=== PATIENT | male | born 1955 | race Caucasian/White ===

== ENCOUNTER 2016-10-22 07:31 | Outpatient (CLI) | payer BC | END 2016-10-22 07:32 | disposition home or self-care (01) | DX: E03.9 Hypothyroidism, unspecified (principal); D70.9 Neutropenia, unspecified; Z79.899 Other long term (current) drug therapy; Z12.5 Encounter for screening for malignant neoplasm of prostate ==

== ENCOUNTER 2017-01-15 07:34 | Outpatient (CLI) | payer BC | END 2017-01-15 07:35 | disposition critical access hospital (66) | LOC: EMS 07:34 | PROVIDERS: ATTEND Surgery | DX: R07.9 Chest pain, unspecified (principal) | CPT/HCPCS: A0425; A0427 ==

== ENCOUNTER 2017-01-15 08:18 | Emergency (ER) | payer BC ==
[2017-01-15] MEDS ORDERED: ACETAMINOPHEN 325 MG TABLET PO STA (08:22)
[2017-01-15] MEDS ORDERED: IBUPROFEN 400 MG TABLET PO STA (08:22)
--- NOTE | 2017-01-15 08:25 | ED Physician Documentation ---
History of Present Illness - Stated complaint Stated Complaint: CP - Additonal information Additional information: hx from pt 61 male to ER with chest pain since 330 AM did a heavy rowing work out yesterday and it hurts when he moves his shoulders, 4/10, pressure like no SOA diaphoresis NV leg swelling no HTN DM lipid or Fhx CAD at a young age no travel inpt hospitalization etc Review of Systems Constitutional: denies: Fever Cardiac: reports: Chest pain / pressure GI: denies: Abdominal Pain Endocrine: denies: Easy bruising / bleeding Immunocompromised: denies: Immunocompromised PD PAST MEDICAL HISTORY - Past Medical History Cardiovascular: None Respiratory: None Endocrine/Autoimmune: HyPOthyroidism GI: Other : None HEENT: None Psych: Anxiety, Claustrophobia Musculoskeletal: None Derm: None - Past Surgical History General: Colonoscopy, EGD, Other - Present Medications Home Medications: Ambulatory Orders Medication Instructions Recorded Confirmed Levothyroxine [Synthroid] 250 mcg PO DAILY 01/10/15 01/15/17 Metoclopramide [Reglan] 5 mg PO DAILY 01/10/15 01/15/17 - Allergies Allergies/Adverse Reactions: Allergies Allergy/AdvReac Type Severity Reaction Status Date / Time Penicillins Allergy Rash Verified 01/15/17 08:25 PD ED PE NORMAL - Vitals Vital signs reviewed: Yes - Cardiac Cardiac: RRR, Other (chest wall TTP) - Respiratory Respiratory: No respiratory distress, Clear bilaterally - Abdomen Abdomen: Soft, Non tender - Derm Derm: Normal color - Extremities Extremities: No edema, No calf tenderness / cord - Neuro Neuro: Alert and oriented X 3 Results - Vitals Vitals: Vital Signs - 24 hr 01/15/17 01/15/17 08:19 09:01 Temperature 37.2 C Heart Rate 63 60 Respiratory 16 16 Rate Blood Pressure 114/72 101/70 O2 Saturation 96 Oxygen O2 Source Room air - EKG (time done) 0827 Rate: Rate (enter#) (59) Rhythm: NSR [place]: Normal Intervals: Normal [place] Ischemia: Normal ST segments - Labs Labs: Laboratory Tests 01/15/17 08:50 Troponin I < 0.04 Departure - Departure Disposition: 01 Home, Self Care Clinical Impression: Chest wall pain Condition: Good Instructions: ED Strain Chest Wall Follow-Up: Mamadou Talbert MD [Primary Care Provider] - Comments: The EKG, xray and blood test for your heart were all fine. Since your chest hurts with moving after a heavy workout, I suspect the pain is from the muscles in your chest wall Recommend motrin and tylenol as needed for pain
[2017-01-15] MEDS ORDERED: ACETAMINOPHEN 325 MG TABLET PO ONE (08:29)
[2017-01-15] MEDS ORDERED: IBUPROFEN 400 MG TABLET PO ONE (08:29)
--- NOTE | 2017-01-15 08:46 | XRAY Preliminary Report ---
Exam: XR Chest 2 View PA/LAT IMPRESSION: Normal 2-view chest radiography. [facility] SITE ID: [id number]
--- NOTE | 2017-01-15 08:49 | XRAY Report ---
EXAM: CHEST RADIOGRAPHY EXAM DATE: 01/15/2017 08:28 AM. CLINICAL HISTORY: Chest pain this morning COMPARISON: 11/03/2011. TECHNIQUE: 2 views. FINDINGS: Lungs/Pleura: No focal opacities evident. No pleural effusion. No pneumothorax. Normal volumes. Mediastinum: Heart and mediastinal contours are unremarkable. Other: None. IMPRESSION: Normal 2-view chest radiography. [facility] Referring Provider Line: [phone] SITE ID: [id number]
[2017-01-15 09:36] VITALS: BP 106/65
== END 2017-01-15 09:43 | disposition home or self-care (01) ==
LOC: EDUNIT# → ED 08:18
DX: R07.89 Other chest pain (principal); E03.9 Hypothyroidism, unspecified
CPT/HCPCS: 36415; 71020; 84484; 93005; 93010; 99284; A9270

== ENCOUNTER 2017-11-25 08:00 | Outpatient (CLI) | payer BC, OTHER ==
[2017-11-25 14:02] LABS: BASOPHILS % (AUTO) 0.6 %; EOSINOPHILS # (AUTO) 0.1 10^3/uL (0.0-0.7); EOSINOPHILS % (AUTO) 1.3 %; HGB - HEMOGLOBIN 14.7 g/dL (14.0-18.0); LYMPHOCYTES # (AUTO) 1.3 10^3/uL (1.5-3.5); LYMPHOCYTES % (AUTO) 30.3 %; MEAN CORPUSCULAR HEMOGLOBIN 32.5 pg (27.0-31.0); MEAN CORPUSCULAR VOLUME 95.7 fL (80.0-94.0); MEAN PLATELET VOLUME 8.2 fL (7.4-11.4); MONOCYTES # (AUTO) 0.4 10^3/uL (0.0-1.0); MONOCYTES % (AUTO) 8.6 %; NEUTROPHILS # (AUTO) 2.6 10^3/uL (1.5-6.6); NEUTROPHILS % (AUTO) 59.2 %; PLT - PLATELET COUNT 189 10^3/uL (130-450); RED BLOOD COUNT 4.51 10^6/uL (4.70-6.10); RED CELL DISTRIBUTION WIDTH 13.2 % (12.0-15.0); WHITE BLOOD COUNT 4.4 x10^3/uL (4.8-10.8)
[2017-11-25 14:11] LABS: ALBUMIN 4.2 g/dL (3.2-5.5); ALBUMIN/GLOBULIN RATIO 1.8 (1.0-2.2); BILIRUBIN,TOTAL 0.4 mg/dL (0.2-1.0); CALCIUM 8.8 mg/dL (8.5-10.3); CREATININE 0.8 mg/dL (0.6-1.2); TOTAL PROTEIN 6.6 g/dL (6.7-8.2)
[2017-11-25 14:23] LABS: HEMOGLOBIN A1C 0.67 g/dL
[2017-11-26 13:36] LABS: HEPATITIS C ANTIBODY NON-REACTIVE (NON-REACTIVE)
== END 2017-11-25 08:01 ==
LOC: LAB.R 08:00
PROVIDERS: ATTEND Internal Medicine
DX: R73.9 Hyperglycemia, unspecified (principal); G62.9 Polyneuropathy, unspecified; E03.9 Hypothyroidism, unspecified
CPT/HCPCS: 80053; 83036; 84443; 85025; 86803

== ENCOUNTER 2018-11-02 04:48 | Outpatient (CLI) | payer OTHER | END 2018-11-02 04:49 | disposition EMS.NT | LOC: EMS 04:48 | PROVIDERS: ATTEND Surgery | DX: R07.89 Other chest pain (principal) ==

== ENCOUNTER 2018-12-08 07:19 | Outpatient (CLI) | payer OTHER ==
[2018-12-08 10:55] LABS: CALCIUM 8.9 mg/dL (8.5-10.3); CREATININE 0.9 mg/dL (0.6-1.2)
[2018-12-08 11:22] LABS: HGB - HEMOGLOBIN 14.4 g/dL (14.0-18.0); MEAN CORPUSCULAR HEMOGLOBIN 32.2 pg (27.0-31.0); MEAN CORPUSCULAR HGB CONC 33.8 g/dL (32.0-36.0); MEAN CORPUSCULAR VOLUME 95.3 fL (80.0-94.0); MEAN PLATELET VOLUME 8.6 fL (7.4-11.4); RED BLOOD COUNT 4.49 10^6/uL (4.70-6.10); RED CELL DISTRIBUTION WIDTH 13.1 % (12.0-15.0); WHITE BLOOD COUNT 4.2 x10^3/uL (4.8-10.8)
== END 2018-12-08 07:20 | disposition home or self-care (01) ==
LOC: LAB.F 07:19
PROVIDERS: ATTEND Internal Medicine
DX: E03.9 Hypothyroidism, unspecified (principal); Z12.5 Encounter for screening for malignant neoplasm of prostate
CPT/HCPCS: 36415; 80048; 84153; 84443; 85027

== ENCOUNTER 2019-11-25 06:04 | Outpatient (CLI) | payer SELFPAY | END 2019-11-25 06:05 | disposition EMS.NT | LOC: EMS 06:04 | PROVIDERS: ATTEND Surgery | DX: R06.02 Shortness of breath (principal); R07.89 Other chest pain; F41.9 Anxiety disorder, unspecified ==

== ENCOUNTER 2019-12-06 03:39 | Outpatient (CLI) | payer BC | END 2019-12-06 03:40 | disposition critical access hospital (66) | LOC: EMS 03:39 | PROVIDERS: ATTEND Surgery | DX: R07.89 Other chest pain (principal); R06.02 Shortness of breath; R11.0 Nausea | CPT/HCPCS: A0425; A0427 ==

== ENCOUNTER 2019-12-06 04:19 | Emergency (ER) | payer BC ==
[2019-12-06] MEDS ORDERED: LORazepam 2 MG/ML VIAL IVP STA (04:46)
--- NOTE | 2019-12-06 04:48 | ED Physician Documentation ---
PD HPI CHEST PAIN - Stated complaint Stated Complaint: CHEST PRESSURE - Chief complaint Chief Complaint: Cardiac - History obtained from History obtained from: Patient, EMS - History of Present Illness Timing - onset: How many hours ago (1-2) Timing - onset during: Sleep (He was awakened by a feeling of pressure in his chest radiating to the left shoulder. He had some shortness of breath with it. He took 2 aspirin and did not feel any improvement. He tried antacid as well. The symptoms continued and so he had his son called EMS. They did give some morphine and nitroglycerin en route and he was feeling improved though still feeling a little bit anxious.), Rest Timing - duration: Hours Timing - details: Abrupt onset, Still present (lessened enroute, but not resolved.) Quality: Pressure, Tightness. No: Sharp, Tearing Location: Left chest Radiation: Back, Left upper extremity Improved by: No: ASA, Antacids Worsened by: No: Inspiration, Movement Associated symptoms: Shortness of air, Nausea, General Weakness. No: Feeling faint / dizzy, Palpitations, Cough Similar symptoms before: No diagnosis (No history of heart disease. He states h e did have cardiac evaluation with stress test and echocardiogram but it was about 10 years ago. He has episodes of chest discomfort and shortness of breath which is attributed to anxiety. He has not had a prior episode lasting a couple of hours like this current one.) Recently seen: Not recently seen Review of Systems Constitutional: denies: Fever, Chills, Myalgias Nose: denies: Rhinorrhea / runny nose, Congestion Throat: denies: Sore throat Cardiac: reports: Chest pain / pressure. denies: Palpitations, Pedal edema, Calf pain Respiratory: denies: Cough GI: reports: Nausea. denies: Abdominal Pain, Vomiting Skin: denies: Rash, Lesions Musculoskeletal: denies: Neck pain, Back pain Neurologic: reports: Generalized weakness. denies: Focal weakness, Numbness, Near syncope, Seizure Psychiatric: reports: Anxiety. denies: Depressed Endocrine: denies: Weight loss Immunocompromised: denies: Immunocompromised PD PAST MEDICAL HISTORY - Past Medical History Cardiovascular: None, Hypertension, Other Respiratory: None Neuro: None Endocrine/Autoimmune: HyPOthyroidism GI: GERD : None HEENT: None Psych: Anxiety, Claustrophobia Musculoskeletal: None Derm: None - Past Surgical History General: Colonoscopy, EGD, Other - Present Medications Home Medications: Ambulatory Orders Medication Instructions Recorded Confirmed Levothyroxine Sodium [Levo-T] 112 mcg PO DAILY 06/12/17 12/06/19 Metoclopramide [Reglan] 0.5 tab PO DAILY 06/12/17 12/06/19 - Allergies Allergies/Adverse Reactions: Allergies Allergy/AdvReac Type Severity Reaction Status Date / Time amoxicillin Allergy Rash Verified 12/06/19 04:24 tetracycline Allergy Hives Verified 12/06/19 04:24 Penicillins AdvReac Respiratory Verified 12/06/19 04:24 - Social History Does the pt smoke?: No Smoking Status: Never smoker Does the pt drink ETOH?: No Does the pt have substance abuse?: No PD ED PE NORMAL - Vitals Vital signs reviewed: Yes - General General: Alert and oriented X 3, Well developed/nourished - HEENT HEENT: Moist mucous membranes, Pharynx benign - Neck Neck: Supple, no meningeal sign, No adenopathy - Cardiac Cardiac: RRR, No murmur - Respiratory Respiratory: Clear bilaterally - Abdomen Abdomen: Normal bowel sounds, Soft, Non tender, Non distended - Derm Derm: Normal color, Warm and dry - Extremities Extremities: No deformity, No tenderness to palpate, Normal ROM s pain, No edema, No calf tenderness / cord - Neuro Neuro: Alert and oriented X 3, No motor deficit, Normal speech Eye Opening: Spontaneous Motor: Obeys Commands Verbal: Oriented GCS Score: 15 - Psych Psych: Normal mood. No: Normal affect (moderately anxious) Results - Vitals Vitals: Vital Signs - 24 hr 12/06/19 12/06/19 12/06/19 04:24 05:30 07:00 Temperature 37.9 C H Heart Rate 64 57 L 52 L Respiratory 16 14 15 Rate Blood Pressure 123/83 H 101/72 102/74 O2 Saturation 96 95 95 Oxygen O2 Source Room air - EKG (time done) 04:25 Rate: Rate (enter#) (60) Rhythm: NSR [place]: Normal Intervals: Normal [place] QRS: Normal Ischemia: Normal ST segments. No: ST elevation c/w ischemia, ST depression - Labs Labs: Laboratory Tests 12/06/19 12/06/19 12/06/19 05:05 05:05 05:05 WBC 6.2 RBC 3.99 L Hgb 12.3 L Hct 37.5 L MCV 94.0 MCH 30.8 MCHC 32.8 RDW 12.4 Plt Count 182 MPV 9.8 Neut # (Auto) 5.0 Lymph # (Auto) 0.8 L [place] # (Auto) 0.4 Eos # (Auto) 0.0 Baso # (Auto) 0.0 Absolute Nucleated RBC 0.00 Nucleated RBC % 0.0 Sodium 141 Potassium 3.4 L Chloride 108 Carbon Dioxide 24 Anion Gap 9.0 BUN 23 H Creatinine 0.8 Estimated GFR (MDRD) 98 Glucose 119 H Calcium 9.1 Magnesium 1.9 Total Bilirubin 0.3 AST 20 ALT 16 Alkaline Phosphatase 26 L Troponin I High Sens 5.6 B-Natriuretic Peptide Total Protein 5.7 L Albumin 3.7 Globulin 2.0 L Albumin/Globulin Ratio 1.9 Lipase 30 TSH 12/06/19 12/06/19 12/06/19 05:05 05:05 07:32 WBC RBC Hgb Hct MCV MCH MCHC RDW Plt Count MPV Neut # (Auto) Lymph # (Auto) [place] # (Auto) Eos # (Auto) Baso # (Auto) Absolute Nucleated RBC Nucleated RBC % Sodium Potassium Chloride Carbon Dioxide Anion Gap BUN Creatinine Estimated GFR (MDRD) Glucose Calcium Magnesium Total Bilirubin AST ALT Alkaline Phosphatase Troponin I High Sens 6.6 B-Natriuretic Peptide 29 Total Protein Albumin Globulin Albumin/Globulin Ratio Lipase TSH 3.88 PD MEDICAL DECISION MAKING - ED course Complexity details: reviewed results, re-evaluated patient, considered differential (Considerations of pulmonary cause such as asthma allergies or effusion. We will get a chest x-ray to evaluate. Consideration of cardiac cause and will get an EKG troponin and BNP. His chest pressure started just to the last couple of hours so a repeat troponin may be indicated if the first 1 is normal. Consideration also of anxiety or stress.), d/w patient Departure - Departure Disposition: 01 Home, Self Care Clinical Impression: Chest pain Qualifiers: Chest pain type: precordial pain Qualified Code(s): R07.2 - Precordial pain Clinical Impression: (Ruled Out): Myocardial infarction Condition: Stable Record reviewed to determine appropriate education?: Yes Instructions: ED Chest Pain NonCardiac Comments: No signs of heart failure or heart attack based on your EKG and blood test. Your chest x-ray is clear as well so no signs of lung cause for the discomfort. Consideration of musculoskeletal pains or possibly anxiety. Recheck if not improved well over the next day or 2 or other symptoms develop to point to a different cause.
[2019-12-06 05:13] LABS: BASOPHILS % (AUTO) 0.3 %; EOSINOPHILS % (AUTO) 0.6 %; HGB - HEMOGLOBIN 12.3 g/dL (14.0-18.0); LYMPHOCYTES # (AUTO) 0.8 10^3/uL (1.5-3.5); LYMPHOCYTES % (AUTO) 12.1 %; MEAN CORPUSCULAR HEMOGLOBIN 30.8 pg (27.0-31.0); MEAN CORPUSCULAR HGB CONC 32.8 g/dL (32.0-36.0); MEAN PLATELET VOLUME 9.8 fL (7.4-11.4); MONOCYTES # (AUTO) 0.4 10^3/uL (0.0-1.0); MONOCYTES % (AUTO) 6.4 %; NEUTROPHILS % (AUTO) 80.3 %; PLT - PLATELET COUNT 182 10^3/uL (130-450); RED BLOOD COUNT 3.99 10^6/uL (4.70-6.10); RED CELL DISTRIBUTION WIDTH 12.4 % (12.0-15.0); WHITE BLOOD COUNT 6.2 x10^3/uL (4.8-10.8)
--- NOTE | 2019-12-06 05:20 | XRAY Report ---
Reason: Chest pain Procedure Date: 12/06/2019 Accession Number: [id number] / [id number] Procedure: XR - Chest 1 View X-Ray CPT Code: 71186 Final Report FULL RESULT: EXAM: CHEST RADIOGRAPHY EXAM DATE: 12/06/2019 04:55 AM. CLINICAL HISTORY: Chest pain. COMPARISON: CHEST 2 VIEW PA/LAT 01/15/2017 8:27 AM. TECHNIQUE: 1 view. FINDINGS: The mediastinal and cardiac silhouettes are normal. Bibasilar interstitial opacities are present. There is no focal consolidation, pleural effusion, or pneumothorax. IMPRESSION: Bibasilar interstitial opacities, left greater than right. [facility]
[2019-12-06 05:27] LABS: ALBUMIN 3.7 g/dL (3.2-5.5); ALBUMIN/GLOBULIN RATIO 1.9 (1.0-2.2); BILIRUBIN,TOTAL 0.3 mg/dL (0.2-1.0); CALCIUM 9.1 mg/dL (8.5-10.3); CREATININE 0.8 mg/dL (0.6-1.2); MAGNESIUM 1.9 mg/dL (1.7-2.8); TOTAL PROTEIN 5.7 g/dL (6.7-8.2)
[2019-12-06 08:05] VITALS: BP 104/68
== END 2019-12-06 08:17 | disposition home or self-care (01) ==
LOC: EDUNIT# → ED 04:19
DX: R07.2 Precordial pain (principal)
CPT/HCPCS: 36415; 71045; 83690; 83735; 83880; 84484; 93005; 96374; 99284; J2060; 80053; 84443; 85025

== ENCOUNTER 2020-02-28 10:13 | Outpatient (CLI) | payer BC ==
[2020-02-28 16:00] LABS: ALBUMIN 4.3 g/dL (3.2-5.5); BILIRUBIN,TOTAL 0.9 mg/dL (0.2-1.0); TOTAL PROTEIN 6.4 g/dL (6.7-8.2)
[2020-02-28 16:51] LABS: HB2 TOTAL 15.9 g/dL; HEMOGLOBIN A1C 0.57 g/dL; HEMOGLOBIN A1C % 5.4 % (4.6-6.2)
== END 2020-02-28 10:14 | disposition home or self-care (01) ==
LOC: LAB.S 10:13
PROVIDERS: ATTEND Internal Medicine
DX: Z00.00 Encounter for general adult medical examination without abnormal findings (principal); R73.02 Impaired glucose tolerance (oral); Z12.5 Encounter for screening for malignant neoplasm of prostate; E03.9 Hypothyroidism, unspecified
CPT/HCPCS: 36415; 80053; 83036; 84153; 84443

== ENCOUNTER 2020-03-01 13:30 | Outpatient (CLI) | payer BC | END 2020-03-01 13:31 | disposition EMS.NT | LOC: EMS 13:30 | PROVIDERS: ATTEND Surgery | DX: R00.2 Palpitations (principal) ==

== ENCOUNTER 2020-04-29 06:28 | Outpatient (CLI) | payer BC | END 2020-04-29 06:29 | disposition short-term general hospital (02) | LOC: EMS 06:28 | PROVIDERS: ATTEND Surgery | DX: R10.9 Unspecified abdominal pain (principal); R55 Syncope and collapse; R07.89 Other chest pain | CPT/HCPCS: A0425; A0427 ==

== ENCOUNTER 2020-05-31 08:13 | Outpatient (CLI) | payer BC ==
[2020-05-31] MEDS ORDERED: GADOBUTROL 10 MMOL/10 ML VIAL ONE (08:29)
[2020-05-31] MEDS ORDERED: GADOBUTROL 10 MMOL/10 ML VIAL IVP ONE (09:34)
--- NOTE | 2020-06-04 10:00 | MRI Report ---
PROCEDURE: Abdomen W/WO INDICATIONS: LIVER LESION CONTRAST: IV CONTRAST: Gadavist ml: 8 TECHNIQUE: Coronal ultra fast SE, axial 2D spoiled GE in- and [id number]; axial breath-hold T2 fast SE. Dynam ic axial ultra fast GE during the administration of contrast; post-contrast coronal ultra fast GE or 2D spoiled GE with fat saturation from the hepatic dome to the iliac crests. Optional diffusion weig hted imaging and ADC may be performed. COMPARISON: None available. Correlation is made to report of CT scan from an outside institution dimas ed 04/29/2020 FINDINGS: Image quality: Excellent. Lung bases: No basal pleural effusions. Heart size is normal. Solid organs: 1.3 x 0.9 cm T2 hyperintense liver lesion is present and segment VII near the liver do me. Postcontrast, the arterial phase demonstrates the presence of some peripheral nodularity. There i s gradual wash-in which is maintained similar to the level of blood pool on delayed phases. No suspic ious washout or peripheral rim-like enhancement. There is a vessel coursing through this lesion which complicates visualization of classic enhancing features. There are no other liver lesions. Liver and spleen are otherwise normal in size and enhancement. A splenule is present anteriorly. Gal lbladder is normal. Biliary system is non dilated. Pancreas is normal in morphology. No adrenal no dules. Both kidneys demonstrate numerous parapelvic cysts and normal parenchymal enhancement, withou t hydronephrosis. Nodes and vessels: No retroperitoneal or mesenteric adenopathy by size criteria. Aorta and inferior vena cava are normal in size. Bowel and peritoneum: Unenhanced bowel loops are normal in caliber. No free fluid. Bones and soft tissues: No ventral hernias. Bone marrow is normal in overall signal. IMPRESSION: 1. 1.3 cm liver lesion in segment VII has features most consistent with a benign hemangioma. One-year follow-up to document stability is recommended. 2. Multiple bilateral parapelvic cysts. Reviewed by: Luna Orona MD on 06/04/2020 9:59 AM PDT Approved by: Luna Orona MD on 06/04/2020 9:59 AM PDT Station ID: [id number]
== END 2020-05-31 08:14 | disposition home or self-care (01) ==
LOC: DI 08:13
PROVIDERS: ATTEND Internal Medicine
DX: K76.9 Liver disease, unspecified (principal)
CPT/HCPCS: 74183; A9585

== ENCOUNTER 2020-07-02 09:11 | Outpatient (CLI) | payer BC | END 2020-07-02 09:12 | disposition critical access hospital (66) | LOC: EMS 09:11 | PROVIDERS: ATTEND Surgery | DX: R10.13 Epigastric pain (principal); R00.2 Palpitations; R42 Dizziness and giddiness | CPT/HCPCS: A0425; A0427 ==

== ENCOUNTER 2020-07-02 09:52 | Observation (INO) | payer BC ==
[2020-07-02 10:29] LABS: BASOPHILS % (AUTO) 0.2 %; EOSINOPHILS % (AUTO) 0.3 %; HGB - HEMOGLOBIN 14.1 g/dL (14.0-18.0); LYMPHOCYTES # (AUTO) 0.8 10^3/uL (1.5-3.5); MEAN CORPUSCULAR HEMOGLOBIN 32.3 pg (27.0-31.0); MEAN CORPUSCULAR HGB CONC 34.5 g/dL (32.0-36.0); MEAN CORPUSCULAR VOLUME 93.8 fL (80.0-94.0); MEAN PLATELET VOLUME 9.7 fL (7.4-11.4); MONOCYTES # (AUTO) 0.4 10^3/uL (0.0-1.0); MONOCYTES % (AUTO) 6.7 %; NEUTROPHILS % (AUTO) 79.5 %; PLT - PLATELET COUNT 201 10^3/uL (130-450); RED BLOOD COUNT 4.36 10^6/uL (4.70-6.10); RED CELL DISTRIBUTION WIDTH 12.1 % (12.0-15.0); WHITE BLOOD COUNT 6.2 x10^3/uL (4.8-10.8)
--- NOTE | 2020-07-02 10:32 | XRAY Report ---
PROCEDURE: Chest 1 View X-Ray INDICATIONS: Chest pain TECHNIQUE: One view of the chest was acquired. COMPARISON: 12/06/2019, 01/15/2017. Correlation is also made with overlapping portions of abdomen CT, 05/31/2020. FINDINGS: Surgical changes and devices: None. Lungs and pleura: No pleural effusions or pneumothorax. Lungs are clear. Mediastinum: The aorta is prominent and tortuous. The cardiac contours are within normal limits. Bones and chest wall: No suspicious bony lesions. Age-appropriate degenerative changes are seen. Overlying soft tissues appear unremarkable. IMPRESSION: Portable chest within normal limits for age. Reviewed by: Costa Oleary MD on 07/02/2020 9:31 AM [facility] Approved by: Costa Oleary MD on 07/02/2020 9:31 AM [facility] Station ID: [id number]
[2020-07-02 10:41] LABS: ALBUMIN/GLOBULIN RATIO 1.5 (1.0-2.2); BILIRUBIN,TOTAL 0.7 mg/dL (0.2-1.0); CALCIUM 9.2 mg/dL (8.5-10.3); CREATININE 0.9 mg/dL (0.6-1.2); TOTAL PROTEIN 6.6 g/dL (6.7-8.2)
[2020-07-02] MEDS ORDERED: FAMOTIDINE 20 MG/2 ML SYRINGE IVP STA (10:43)
[2020-07-02] MEDS ORDERED: ONDANSETRON ODT 4 MG TABLET TL PRN (11:58)
[2020-07-02] MEDS ORDERED: ACETAMINOPHEN 325 MG TABLET PO PRN (11:58)
[2020-07-02] MEDS ORDERED: SODIUM CHLORIDE FLUSH 0.9% 10 ML SYRINGE IVP PRN (11:58)
[2020-07-02] MEDS ORDERED: ONDANSETRON 4 MG/2 ML VIAL IVP PRN (11:58)
[2020-07-02] MEDS ORDERED: oxyCODONE 5 MG TABLET PO PRN (11:58)
[2020-07-02] MEDS ORDERED: PANTOPRAZOLE 40 MG VIAL IVP SCH (12:00)
[2020-07-02] MEDS ORDERED: SUCRALFATE 1 GM/10 ML UDC PO STA (12:03)
--- NOTE | 2020-07-02 12:37 | ED Physician Documentation ---
History of Present Illness - Stated complaint Stated Complaint: ABD PX - Chief complaint Chief Complaint: Abd Pain - Additonal information Additional information: 64-year-old male with past medical history of hypothyroidism, gastroparesis on reglan, presents with palpitations this morning associated with epigastric abdominal pain radiating up sternum that is burning in quality, moderate severity, worse with leaning forward, and bending over, a/w mild nausea. Patient took his blood pressure and says that it was low and that his heart rate was fluctuating between the 40s and the 120s at home. Last stress test 8 years ago Was normal. Denies CP, sob Fever chills back pain vomiting or diarrhea urinary symptoms. Review of Systems Ten Systems: 10 systems reviewed and negative Constitutional: denies: Fever, Chills Cardiac: reports: Palpitations GI: reports: Abdominal Pain PD PAST MEDICAL HISTORY - Past Medical History Past Medical History: Yes Cardiovascular: None, Hypertension, Other Respiratory: None Neuro: None Endocrine/Autoimmune: HyPOthyroidism GI: GERD : None HEENT: None Psych: Anxiety, Claustrophobia Musculoskeletal: None Derm: None - Past Surgical History General: Colonoscopy, EGD, Other - Present Medications Home Medications: Ambulatory Orders Medication Instructions Recorded Confirmed Levothyroxine Sodium [Levo-T] 112 mcg PO DAILY 06/12/17 12/06/19 Metoclopramide [Reglan] 0.5 tab PO DAILY 06/12/17 12/06/19 - Allergies Allergies/Adverse Reactions: Allergies Allergy/AdvReac Type Severity Reaction Status Date / Time amoxicillin Allergy Rash Verified 07/02/20 10:07 tetracycline Allergy Hives Verified 07/02/20 10:07 Penicillins AdvReac Respiratory Verified 07/02/20 10:07 - Social History Does the pt smoke?: No Smoking Status: Never smoker Does the pt drink ETOH?: No Does the pt have substance abuse?: No PD ED PE NORMAL - Vitals Vital signs reviewed: Yes - General General: Alert and oriented X 3 - HEENT HEENT: Atraumatic, PERRL, EOMI - Neck Neck: Supple, no meningeal sign, No JVD - Cardiac Cardiac: RRR, No murmur, No gallop, No rub - Respiratory Respiratory: No respiratory distress, Clear bilaterally - Abdomen Abdomen: Normal bowel sounds, Non tender, Non distended - Male Male : Deferred - Rectal Rectal: Deferred - Back Back: No CVA TTP - Derm Derm: Normal color - Extremities Extremities: No deformity - Neuro Neuro: Alert and oriented X 3 - Psych Psych: Normal mood, Normal affect Results - Vitals Vitals: Vital Signs - 24 hr 07/02/20 10:00 Temperature 35.7 C L Heart Rate 58 L Respiratory 16 Rate Blood Pressure 128/85 H O2 Saturation 95 Oxygen O2 Source Room air - EKG (time done) 0959 Rate: Rate (enter#) Rhythm: Sinus bradycardia [place]: Normal Intervals: Other (short [place] 88) QRS: Normal Ischemia: Normal ST segments Computer interpretation: Agree with computer - Labs Labs: Laboratory Tests 07/02/20 07/02/20 07/02/20 10:22 10:22 10:22 WBC 6.2 RBC 4.36 L Hgb 14.1 Hct 40.9 L MCV 93.8 MCH 32.3 H MCHC 34.5 RDW 12.1 Plt Count 201 MPV 9.7 Neut # (Auto) 5.0 Lymph # (Auto) 0.8 L [place] # (Auto) 0.4 Eos # (Auto) 0.0 Baso # (Auto) 0.0 Absolute Nucleated RBC 0.00 Nucleated RBC % 0.0 Sodium 142 Potassium 4.2 Chloride 105 Carbon Dioxide 27 Anion Gap 10.0 BUN 24 H Creatinine 0.9 Estimated GFR (MDRD) 86 L Glucose 108 H Calcium 9.2 Total Bilirubin 0.7 AST 12 ALT 12 Alkaline Phosphatase 27 L Troponin I High Sens 2.8 Total Protein 6.6 L Albumin 4.0 Globulin 2.6 Albumin/Globulin Ratio 1.5 Lipase 33 PD MEDICAL DECISION MAKING - ED course Complexity details: reviewed results, re-evaluated patient, d/w patient ED course: 64-year-old man Presented with atypical chest pain/epigastric abdominal pain, found to have normal troponin and EKG. Heart score 2 for risk factor of family history and for age. d/w hospitalist who will attempt to do stress test tomorrow. patient agreeable to stay for further workup. Departure - Departure Disposition: ED Place in Observation Clinical Impression: Epigastric pain, Palpitations Condition: Stable
--- NOTE | 2020-07-02 14:27 | HISTORY & PHYSICAL EXAMINATION ---
Chief Complaint - Chief Complaint Chief Complaint: Epigastric pain radiating to the chest History of Present Illness - Admitted From Admitted From:: Home via ER - History Obtained From Records Reviewed: [facility] History obtained from: Patient Exam Limitations: none - History of Present Illness HPI Comment/Other: 64-year-old white male who came in today because of having increasing epigastric abdominal pain radiating to his central chest. It also occasionally radiates straight through to his back. He has a long history of dyspepsia. His entire life, if he drank any alcohol, it would cause epigastric discomfort to the point that he just avoided drinking because it hurt too much. If he takes an aspirin it causes pain. 8 years ago he had an EGD with Dr. Leary and was diagnosed with multiple ulcer erosions. H. pylori negative. The last time he had an alcoholic drink was in November. He was at his brothers awake, he had just of sudden from an ME, and the shanda caused him to have epigastric disc omfort radiating straight through to his chest and back. 2 weeks ago he noticed an increase in the epigastric discomfort. Is the same epigastric discomfort he is always had. Radiating to his back, associated with lack of food. Sometimes it radiates into his chest, and he will feel pain all the way up into the left neck and ear. Once he eats the epigastric pain is improved. But subsequent time passes and he will have abdominal bloating and gassy distention that is uncomfortable. Twice this last week he has had periumbilical pain that is been sharp and bloating and uncomfortable. No blood in his stool, no change in bowel habits. However the fact that his brother of a heart attack in November has weighed heavily on his spirit. In addition to the increased epigastric discomfort the last 2 weeks, he has noticed a lack of energy. He cannot put his finger on it because he is able to do all of his activities of daily living as he always has. 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 He lifts weights on a regular basis. Walks 2 miles a day. That has been unchanged. He is just unexpectedly fatigued, tired, and cannot sleep at night. He di try to take a Dexlant last week. Sucralfate does help the pain as well. This morning he woke up with palpitations. His belly was distended with gas. It radiated straight up into his chest. Bending over made it worse. Straightening up made it better. For the first time, he noted that he felt nauseated. His pulse dropped. Usually he gets anxious and agitated and his pulse increases. This time it dropped. That frightened him even more. He took his blood pressure and his pulse was in the 40 while his blood pressure was in the 120 systolic. He came to the emergency room. Risk factors for cardiac disease include male sex, and family history. He does not have high blood pressure, diabetes, hyperlipidemia and he does not smoke. Examination was benign. Troponin was 2.8. EKG was withSR and no acute ST-T wave changes. Emergency room physician is asking for observation status for rule out ME and GI work-up. History - Past Medical History Cardiovascular: reports: None, Other Respiratory: reports: None Neuro: reports: None Endocrine/Autoimmune: reports: HyPOthyroidism GI: reports: GERD : reports: None HEENT: reports: None Psych: reports: Anxiety, Claustrophobia Musculoskeletal: reports: None Derm: reports: None MRSA Hx?: No - Past Surgical History General: reports: Colonoscopy, EGD, Other - Family & Social History Family History Comment/Other: Mom is alive at age 82 and has congestive heart failure and low blood pressure, No history of ulcer disease or endocrine disease. Dad at 83 of metastatic lung cancer most likely from secondhand smoke since he did not smoke but work in an area where people did. No history of endocrine or ulcer disease. 2 brothers. 1 of sudden and ME in November of this year at the age of 58. The other brother is healthy.No history of ulcer disease. One half brother has high blood pressure and diabetes. 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 Never did after that. Rarely drinks because a lcohol really hurts his stomach. No history of recreational substance abuse. He has been twice and twice. His 2 sons live with him. When their mom left to go live in [place] to be close to family, they opted to stay on [facility] because they wanted to be close to their friends and so moved in with dad. He says they get along great. - Substance History Use: Uses substance without health or social issues: NONE Abuse: Recurrent use of substance despite neg consequences: NONE Dependence: Experiences withdrawal or developed tolerances: NONE - POLST Patient has POLST: No POLST Status: Full Code Meds/Allgy - Home Medications Home Medications: Ambulatory Orders Medication Instructions Recorded Confirmed Levothyroxine Sodium [Levo-T] 112 mcg PO QDAC 06/12/17 12/06/19 Metoclopramide [Reglan] 5 mg PO BID 07/02/20 07/02/20 Sucralfate [Carafate] 1 gm PO QID 07/02/20 - Allergies Allergies/Adverse Reactions: Allergies Allergy/AdvReac Type Severity Reaction Status Date / Time amoxicillin Allergy Rash Verified 07/02/20 10:07 tetracycline Allergy Hives Verified 07/02/20 10:07 Penicillins AdvReac Respiratory Verified 07/02/20 10:07 Review of Systems - Constitutional Constitutional: reports: Other (Fatigue for the last 2 weeks. Not impacting cardiovascular endurance. No weight changes, fevers chills or sweats.) - Eyes Eyes: reports: Other (Denies glaucoma, cataracts, change in vision. No intermittent loss of vision. No diplopia.) - Ears, Nose & Throat Ears, Nose & Throat: reports: Other (Denies ear pain, sore throat, runny nose, vertigo or tinnitus. No sore hoarseness.) - Cardiovascular Cariovascular: reports: Other (But palpitations this morning. Fatigue for the last 2 weeks. Epigastric pain that radiates to the chest. Also radiates to the back. Lightheaded today.) - Respiratory Respiratory: reports: Other (Has never had problems with asthma, bronchitis, coughing, wheezing.) - Gastrointestinal Gastrointestinal: reports: Reflux/heartburn, Other (Chronic intermittent epigastric dyspepsia and pain. Ongoing for decades. History of peptic ulcer disease. Denies change in bowel habits. There is been no darkness to his stools, no blood in his stools. No weight loss.). denies: Diarrhea, Coffee grounds emesis - Genitourinary Genitourinary: reports: Other (Denies any prostate symptoms. No nocturia, incontinence, frequency, urgency, or delayed stream.) - Musculoskeletal Musculoskeletal: reports: Other (In spite of being a contractor, has minimal discomfort. Joints are okay. He does get occasional left back pain associated with his ulcer disease. Lives weight several times a week, walks 2 miles a day.) - Integumentary Integumentary: reports: Other (No skin complaints at all) - Neurological Neurological: reports: Other (Denies headache, memory problems, seizure, dizziness, focal neurological deficits) Exam - Vital Signs Reviewed Vital Signs: Yes Vital Signs: Vital Signs x48h Temp Pulse Pulse Resp BP BP Pulse Ox 07/02/20 13:34 37.0 C 60 16 125/75 99 07/02/20 12:08 58 L 10 L 124/88 H 98 07/02/20 10:00 35.7 C L 58 L 16 128/85 H 95 - Physical Exam General Appearance: positive: No acute distress, Alert, Other (Slender middle-aged male who looks his stated age, comfortable in bed. Readily states that he is really anxious about all this and just wants to lay all these issues to rest because of his brother's .) Eyes Bilateral: positive: PERRL, EOMI ENT: positive: Pharynx nml, No signs of dehydration Neck: positive: No JVD. negative: Stiff neck Respiratory: positive: Chest non-tender (No costochondritis), No respiratory distress. negative: Wheezes, Rales, Rhonchi Cardiovascular: positive: Regular rate & rhythm. negative: Systolic murmur, Gallop/S4, Friction rub Peripheral Pulses: positive: 1+ Abdomen: positive: No organomegaly, Nml bowel sounds, No distention, Tenderness (Very minimal, epigastrium and slightly to the left upper quadrant.). negative: Guarding, Rebound, Bruit Skin: positive: Warm, Dry. negative: Pallor Extremities: positive: Non-tender, Full ROM, No pedal edema Neurologic/Psychiatric: positive: Oriented x3, CN's nml (2-12), Motor nml Conclusion/Plan - Problem List (1) Epigastric pain Conclusion/Plan: He gives a story very classic for ulcer disease. This is in a gentleman who is H. pylori negative. Already had multiple erosions on a previous EGD 8 years ago. Does not do anything to give himself ulcer such as alcohol or nonsteroidal use.Differential diagnosis could be solitary gastrinoma versus neuroendocrine tumor or MEN type I. Plan: Observation status General surgery consultation with Dr. Vargas EGD in the morning Gastrin level to rule out Franko-Kong (He does not have a family history of ulcer disease. He does not have a history of nephrolithiasis, hypoglycemia, pituitary dysfunction, diarrhea indicating MEN 1) Mylanta, Carafate for now and avoid PPIs until the gastrin level is done (2) Fear of developing heart disorder Conclusion/Plan: Risk factors include male sex, family history. All other risk factors are negative. We will do a second set of troponins to make sure there is no bump. He has a very classic peptic ulcer disease history as opposed to cardiac history. Nevertheless his fatigue and lack of energy over the last week to 2 weeks is concerning. Is is cardiac, or depression and anxiety? Plan: See if we can do a Charan protocol treadmill test tomorrow before discharge Although the logistics of doing a Charan protocol in addition to his EGD are problematic (3) Hypothyroid Conclusion/Plan: Check TSH. Qualifiers: Hypothyroidism type: acquired Qualified Code(s): E03.9 - Hypothyroidism, unspecified - Lab Results Lab results reviewed: Yes Fish Bones: 07/02/20 10:22 07/02/20 10:22 - Diagnostic Imaging Results Diagnostic Imaging Results: positive: Final report reviewed - EKG Results EKG Interpreted Independently: No EKG Comparison: No prior EKG EKG Findings: Normal sinus rhythm with low voltage. Bradycardic to 56. No acute ST-T wave changes. Core Measures - Anticipated LOS I expect patient to be DC'd or transferred within 96 hours.: Yes - DVT/VTE - Prophylaxis VTE/DVT Device ordered at admit?: Yes Not Ordered - Low Risk: Very low risk
--- NOTE | 2020-07-02 14:39 | PHARMACY PROGRESS NOTE ---
- Best Possible Medication History Admit Date and Time: 07/02/20 1158 Processed by: Pharmacy Medication History completed: Yes Patient Interview: Completed Secondary Source(s): Physician records, Pharmacy records, Insurance records As the person ultimately responsible for medication therapy, providers are able to order a medication from an existing home medication list in [facility] via the "Reconcile Routine" prior to Confirmation of that medication by direct support professional home health. Such practice is discouraged except when the physician, in their clinical judgment, deems that a medical need exists for a medication without regard to previous use.
[2020-07-02 17:26] LABS: C. PNEUMONIAE- RESP PCR PANEL NOT DETECTED
[2020-07-02] MEDS: GI COCKTAIL 120 ML BOTTLE PO PRN (18:41)
[2020-07-02] MEDS: SODIUM CHLORIDE FLUSH 0.9% 10 ML SYRINGE IVP SCH (18:42)
--- NOTE | 2020-07-02 20:36 | Ultrasound Report ---
PROCEDURE: Abdomen Limited INDICATIONS: epigastric pain to chest w food TECHNIQUE: Real-time focused scanning was performed of the abdomen, with image documentation. COMPARISON: None FINDINGS: The liver measures 16.5 cm in length and has a normal echotexture. There is no intrahepatic biliary d uctal dilatation or mass. The gallbladder has no stones. There is a 3 mm polyp along the anterior wal l of the gallbladder. No pericholecystic fluid or sonographic Arenas's. The common bile duct measures 4.4 mm. The pancreatic head and body are obscured. The right kidney has a normal size. The right verna osborn has parapelvic cysts also seen on prior CT. IMPRESSION: 1. No acute abnormality of the abdomen or pelvis. 2. Benign gallbladder polyp. 3. Parapelvic cysts as seen on prior CT. Reviewed by: Harmeet Whitten on 07/02/2020 8:35 PM [facility] Approved by: Harmeet Whitten on 07/02/2020 8:35 PM [facility] Station ID: [id number]
[2020-07-03] MEDS: GI COCKTAIL 120 ML BOTTLE PO PRN (00:55)
[2020-07-03] MEDS: SODIUM CHLORIDE FLUSH 0.9% 10 ML SYRINGE IVP SCH ×2 (01:05→08:35)
[2020-07-03 04:46] LABS: BASOPHILS % (AUTO) 0.6 %; EOSINOPHILS # (AUTO) 0.1 10^3/uL (0.0-0.7); EOSINOPHILS % (AUTO) 1.7 %; HGB - HEMOGLOBIN 14.1 g/dL (14.0-18.0); LYMPHOCYTES # (AUTO) 1.8 10^3/uL (1.5-3.5); LYMPHOCYTES % (AUTO) 33.4 %; MEAN CORPUSCULAR HEMOGLOBIN 32.3 pg (27.0-31.0); MEAN CORPUSCULAR HGB CONC 34.1 g/dL (32.0-36.0); MEAN CORPUSCULAR VOLUME 94.7 fL (80.0-94.0); MEAN PLATELET VOLUME 9.7 fL (7.4-11.4); MONOCYTES # (AUTO) 0.5 10^3/uL (0.0-1.0); MONOCYTES % (AUTO) 8.3 %; NEUTROPHILS % (AUTO) 55.6 %; PLT - PLATELET COUNT 191 10^3/uL (130-450); RED BLOOD COUNT 4.36 10^6/uL (4.70-6.10); RED CELL DISTRIBUTION WIDTH 12.4 % (12.0-15.0); WHITE BLOOD COUNT 5.5 x10^3/uL (4.8-10.8)
[2020-07-03 04:55] LABS: CALCIUM 8.7 mg/dL (8.5-10.3); CREATININE 0.8 mg/dL (0.6-1.2)
[2020-07-03] MEDS ORDERED: KETAMINE 500 MG/10 ML VIAL IVP ONE ×2 (07:39→11:22)
[2020-07-03] MEDS ORDERED: LIDOCAINE-MPF 2% 5 ML VIAL IM ONE (07:39)
[2020-07-03] MEDS ORDERED: GLYCOPYRROLATE 1 MG/5 ML VIAL IVP ONE (07:39)
[2020-07-03] MEDS ORDERED: MIDAZOLAM 2 MG/2 ML VIAL IVP ONE (07:39)
[2020-07-03] MEDS ORDERED: PROPOFOL 200 MG/20 ML VIAL IVP ONE (07:39)
[2020-07-03] MEDS ORDERED: LACTATED RINGERS 1,000 ML IV ONE (07:39)
--- NOTE | 2020-07-03 08:12 | ANESTHESIA ---
Pre-Anesthesia VS, & Labs - Diagnosis epigastric pain - Procedure EGD Vital Signs: Temp Pulse Resp BP Pulse Ox 36.6 C 54 L 16 100/68 98 07/03/20 07:21 07/03/20 07:21 07/03/20 07:21 07/03/20 07:21 07/03/20 07:21 Height: 5 ft 9 in Weight (kg): 81.5 kg Body Mass Index: 26.5 BMI Classification: Overweight - NPO >8 hours - Lab Results Current Lab Results: Laboratory Tests 07/03/20 04:40: Sodium 139, Potassium 3.9, Chloride 107, Carbon Dioxide 26, Anion Gap 6.0, BUN 20, Creatinine 0.8, Estimated GFR (MDRD) 98, Glucose 106 H, Calcium 8.7 07/03/20 04:40: WBC 5.5, RBC 4.36 L, Hgb 14.1, Hct 41.3 L, MCV 94.7 H, MCH 32.3 H, MCHC 34.1, RDW 12.4, Plt Count 191, MPV 9.7, Neut # (Auto) 3.0, Lymph # (Auto) 1.8, Benton # (Auto) 0.5, Eos # (Auto) 0.1, Baso # (Auto) 0.0, Absolute Nucleated RBC 0.00, Nucleated RBC % 0.0 07/02/20 22:35: Troponin I High Sens 3.8 07/02/20 16:58: PTH Intact 57 07/02/20 16:58: Troponin I High Sens 3.7 07/02/20 14:35: TSH 1.58 07/02/20 10:22: Troponin I High Sens 2.8 07/02/20 10:22: Sodium 142, Potassium 4.2, Chloride 105, Carbon Dioxide 27, Anion Gap 10.0, BUN 24 H, Creatinine 0.9, Estimated GFR (MDRD) 86 L, Glucose 108 H, Calcium 9.2, Total Bilirubin 0.7, AST 12, ALT 12, Alkaline Phosphatase 27 L, Total Protein 6.6 L, Albumin 4.0, Globulin 2.6, Albumin/Globulin Ratio 1.5, Lipase 33 07/02/20 10:22: WBC 6.2, RBC 4.36 L, Hgb 14.1, Hct 40.9 L, MCV 93.8, MCH 32.3 H, MCHC 34.5, RDW 12.1, Plt Count 201, MPV 9.7, Neut # (Auto) 5.0, Lymph # (Auto) 0.8 L, Benton # (Auto) 0.4, Eos # (Auto) 0.0, Baso # (Auto) 0.0, Absolute Nucleated RBC 0.00, Nucleated RBC % 0.0 Fish Bones: 07/03/20 04:40 07/03/20 04:40 Home Medications and Allergies Home Medications: Ambulatory Orders Metoclopramide [Reglan] 5 mg PO BID 07/02/20 Sucralfate [Carafate] 1 gm PO TID 07/02/20 Active Medications Acetaminophen (Tylenol) 650 mg PO Q4HR PRN PRN Reason: Pain 1 to 4 Multi-Ingredient Mouthwash/Gargle () 30 ml PO Q4H PRN PRN Reason: Abdominal Pain Last Admin: 07/03/20 00:55 Dose: 30 ml Documented by: Ondansetron HCl (Zofran Odt) 4 mg TL Q6HR PRN PRN Reason: Nausea / Vomiting Ondansetron HCl (Zofran Inj) 4 mg IVP Q6HR PRN PRN Reason: Nausea / Vomiting Oxycodone HCl (Roxicodone) 5 mg PO Q4HR PRN PRN Reason: Pain 5 to 7 Sodium Chloride (Normal Saline Flush 0.9%) 10 ml IVP PRN PRN PRN Reason: NEEDED PER PROVIDER ORDERS Sodium Chloride (Normal Saline Flush 0.9%) 10 ml IVP 0100,0900,1700 CASSANDRA Last Admin: 07/03/20 01:05 Dose: 10 ml Documented by: Levothyroxine Sodium [Levo-T] 112 mcg PO QDAC 06/12/17 Metoclopramide [Reglan] 5 mg PO BID 07/02/20 Sucralfate [Carafate] 1 gm PO TID 07/02/20 Allergies/Adverse Reactions: Allergies Allergy/AdvReac Type Severity Reaction Status Date / Time amoxicillin Allergy Rash Verified 07/02/20 10:07 tetracycline Allergy Hives Verified 07/02/20 10:07 Penicillins AdvReac Respiratory Verified 07/02/20 10:07 Anes History & Medical History - Anesthetic History Anesthesia Complications: reports: No previous complications - Medical History Cardiovascular: reports: None, Other Pulmonary: reports: None Gastrointestinal: reports: GERD Urinary: reports: None Neuro: reports: None Musculoskeletal: reports: None Endocrine/Autoimmune: reports: HyPOthyroidism Blood Disorders: reports: None Skin: reports: None Smoking Status: Never smoker - Surgical History General: Colonoscopy, EGD, Other Exam General: Alert Dental: WNL Mouth Opening: Greater than 4 Fingerbreadths Neck Mobility: Normal Mallampati classification: I Thyromental Distance: greater than 6 cm Respiratory: Lungs clear Cardiovascular: Regular rate Mental/Cognitive Status: Alert/Oriented X3 Plan Anesthesia Type: MAC Consent for Procedure(s) Verified and Reviewed: Yes Code Status: Attempt Resuscitation ASA classification: 2-Mild systemic disease Is this case an emergency?: No (Urgent add on, preop eval done at 735)
[2020-07-03] MEDS ORDERED: D5NS W/20 MEQ KCL 1,000 ML IV SCH (12:00)
[2020-07-03] MEDS ORDERED: SUCRALFATE 1 GM/10 ML UDC PO SCH (12:00)
--- NOTE | 2020-07-03 12:50 | ANESTHESIA POST OP EVALUATION ---
Anesthesia Post Eval - Post Anesthesia Eval Vitals: Last Vital Signs Temp 37.0 C 07/03/20 11:26 Pulse 49 L 07/03/20 11:26 Resp 16 07/03/20 11:26 BP 103/74 07/03/20 11:26 Pulse Ox 98 07/03/20 11:26 CV Function Including HR & BP: positive: Stable Pain Control: positive: Satisfactory Nausea & Vomiting: positive: Negative Mental Status: positive: Baseline Respiratory Status: Airway Patent Hydration Status: Satisfactory Anesthesia Complications: positive: None
--- NOTE | 2020-07-03 15:23 | Discharge Plan ---
Discharge Plan Problem Reviewed?: Yes Disposition: Home, Self Care Condition: Stable Prescriptions: Pantoprazole [Protonix] 40 mg PO DAILY #30 tablet Diet: Soft Activity Restrictions: Activity as Tolerated Shower Restrictions: No Driving Restrictions: No Instruction Topics: Gastritis Tx Health Concerns: You were in Observation status to evaluate abdominal pain and complaints of pain in the chest/neck/shoulders. You underwent endoscopy and the findings were mild gastritis. You underwent a stress test with Echo and this result was within normal limits. You should advance your diet as tolerated, and eat a low acid and easy to digest diet. Follow recommendations from the doctor who did the endoscopy: Avoid aspirin products, and avoid greasy, spicy or heavy foods, use Protonix (Proton Pump Inhibitor), if it helps. You should see your PCP in follow-up, since you likely need a referral to Gastroenterology specialist for further evaluation of your symptoms. You may need to be referred to an ENT specialist for evaluating and managing the ringing in your ears and fullness in the right ear. Resume all your usual medicines. A prescription for Protonix was ordered and electronically sent to your [facility] in [place]. Plan of Treatment: As above. Care Goals: Improvement in symptoms and stabilization are the goals. Assessment: Patient understands the plan, written reminders were provided at discharge. No Smoking: If you smoke, Please STOP! Call for help. Follow-up with: Haseeb Driver MD [Primary Care Provider] -
--- NOTE | 2020-07-03 15:28 | DISCHARGE SUMMARY ---
"Discharge Summary Admit Date: 07/02/20 Discharge Date: 07/03/20 Discharging Provider: Dr Barrios Primary Care Provider: Dr Driver Code Status: Attempt Resuscitation Condition at Discharge: Stable Discharge Disposition: 01 Home, Self Care - HPI History of Present Illness: From the admission H&P of Dr Beth Ayala: 64-year-old white male who came in today because of having increasing epigastric abdominal pain radiating to his central chest. It also occasionally radiates straight through to his back. He has a long history of dyspepsia. His entire life, if he drank any alcohol, it would cause epigastric discomfort to the point that he just avoided drinking because it hurt too much. If he takes an aspirin it causes pain. 8 years ago he had an EGD with Dr. Leary and was diagnosed with multiple ulcer erosions. H. pylori negative. The last time he had an alcoholic drink was in November. He was at his brothers awake, he had just of sudden from an CT, and the shanda caused him to have epigastric discomfort radiating straight through to his chest and back. Two weeks ago he noticed an increase in the epigastric discomfort. Is the same epigastric discomfort he is always had. Radiating to his back, associated with lack of food. Sometimes it radiates into his chest, and he will feel pain all the way up into the left neck and ear. Once he eats the epigastric pain is improved. But subsequent time passes and he will have abdominal bloating and gassy distention that is uncomfortable. Twice this last week he has had periu mbilical pain that is been sharp and bloating and uncomfortable. No blood in his stool, no change in bowel habits. However the fact that his brother of a heart attack in November has weighed heavily on his spirit. In addition to the increased epigastric discomfort the last 2 weeks, he has noticed a lack of energy. He cannot put his finger on it because he is able to do all of his activities of daily living as he always has. 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 He lifts weights on a regular basis. Walks 2 miles a day. That has been unchanged. He is just unexpectedly fatigued, tired, and cannot sleep at night. He di try to take a Dexlant last week. Sucralfate does help the pain as well. This morning he woke up with palpitations. His belly was distended with gas. It radiated straight up into his chest. Bending over made it worse. Straightening up made it better. For the first time, he noted that he felt nauseated. His pulse dropped. Usually he gets anxious and agitated and his pulse increases. This time it dropped. That frightened him even more. He took his blood pressure and his pulse was in the 40 while his blood pressure was in the 120 systolic. He came to the emergency room. Risk factors for cardiac disease include male sex, and family history. He does not have high blood pressure, diabetes, hyperlipidemia and he does not smoke. Examination was benign. Troponin was 2.8. EKG was with NSR and no acute ST-T wave changes. Emergency room physician is asking for Observation status for rule out CT and for GI work-up. - CONSULTS | PROCEDURES Procedures: EGD, Stress test - HOSPITAL COURSE Hospital Course: (1) Epigastric pain He gave a story very classic for ulcer disease, with previous gastric erosion s but H. pylori negative by EGD 8 years ago. He does not do anything to give himself ulcer, such as alcohol or nonsteroidal use. Differential diagnosis could be solitary gastrinoma versus neuroendocrine tumor or MEN type I. He underwent EGD with Dr. Vargas and found to have gastritis, was started on Protonix and discharged on this. A Gastrin level was sent, to rule out Franko-Kong syndrome (He does not have a family history of ulcer disease. He does not have a history of nephrolithiasis, hypoglycemia, pituitary dysfunction, diarrhea indicating MEN 1). He was instructed to advance his diet as tolerated, and eat a low acid and easy to digest food. The recommendations from the doctor who did the endoscopy were to avoid aspirin products, and avoid greasy, spicy or heavy foods, use Protonix if it helps. He may need referral to a Account Solutions Analyst for further management. (2) Fear of developing heart disorder/ Atypical chest pain Cardiac risk factors included male sex, family history. His fatigue and lack of energy over the last 1-2 weeks was concerning. He underwent a Charan protocol treadmill test with Echo imaging. He had good exercise tolerance, developed no symptoms with exercise, had no ischemic changes on EKG and the Echo showed normal LV wall motion pre and post exercise. (3) Hypothyroid His TSH level was normal at 1.58 and he was continued on his home Synthroid dose. 4) Tinnitus He did have this complaint intermittently and also described a fullness/plugged feeling on the right. ENT evaluation as an outpatient was advised. - ALLERGIES Allergies/Adverse Reactions: Allergies Allergy/AdvReac Type Severity Reaction Status Date / Time amoxicillin Allergy Rash Verified 07/02/20 10:07 tetracycline Allergy Hives Verified 07/02/20 10:07 Penicillins AdvReac Respiratory Verified 07/02/20 10:07 - MEDICATIONS Home Medications: Ambulatory Orders Medication Instructions Recorded Confirmed Levothyroxine Sodium [Levo-T] 112 mcg PO QDAC 06/12/17 07/02/20 Metoclopramide [Reglan] 5 mg PO BID 07/02/20 07/02/20 Sucralfate [Carafate] 1 gm PO TID 07/02/20 07/02/20 Pantoprazole [Protonix] 40 mg PO DAILY #30 tablet 07/03/20 - PHYSICAL EXAM AT DISCHARGE General Appearance: positive: No acute distress, Alert Eyes Bilateral: positive: Normal inspection, EOMI ENT: positive: ENT inspection nml, No signs of dehydration Neck: positive: Nml inspection, No JVD Respiratory: positive: No respiratory distress, Breath sounds nml Cardiovascular: positive: Regular rate & rhythm, No murmur Abdomen: positive: Non-tender, No distention Skin: positive: Warm, Dry Extremities: positive: Non-tender, No pedal edema Neurologic/Psychiatric: positive: Oriented x3, Motor nml - LABS Result Diagrams: 07/03/20 04:40 07/03/20 04:40 - DIAGNOSTIC IMAGING Diagnostic Imaging Results: Final report reviewed - FOLLOW UP Follow Up: See PCP in hospital follow-up. He needs referral to gastroenterology and to ENT. - TIME SPENT Time Spent in Discharge (Minutes): 35"
[2020-07-03 15:52] VITALS: BP 118/77
--- NOTE | 2020-07-03 16:07 | CARDIAC PROCEDURE NOTE ---
DATE OF SERVICE: 07/03/2020 Physician: Marisa Barrios MD INDICATION: Chest pain. CARDIAC RISK FACTORS: Male gender, family history of heart disease. DESCRIPTION OF PROCEDURE: After signing informed consent, the patient underwent a Charan-protocol treadmill stress test with echo imaging at rest and post- exercise. RESTING HEART RATE: 55. PEAK HEART RATE: 158 (100% predicted maximum heart rate for age). RESTING BLOOD PRESSURE: 117/96. PEAK BLOOD PRESSURE: 166/83. The patient exercised for 6 minutes and 11 seconds on a Charan-protocol treadmill stress test. He achieved a peak heart rate of 158 (100% PMHR) and 7.1 METs. The patient developed mild shortness of breath, but had no chest pain, shoulder pain, neck pain, or abdominal pain or bloating. He did start to develop "ringing in his ears" in the final 2 stages. O2 saturation was 95%-98% on room air throughout the test. RESTING EKG: Sinus bradycardia, low voltage in the limb leads, otherwise within normal limits. EKG AT PEAK: New vertical axis develops and new poor R-wave progression develops, no ST- segment depressions or T-wave changes develop. SUMMARY 1. Essentially normal resting EKG. 2. With exercise, he develops a vertical axis and poor R-wave progression (suggesting possible pulmonary disease). 3. No ST-segment or T-wave changes developed to suggest ischemia. 4. Echo images were reported separately and showed no wall motion abnormalities to suggest scar or ischemia. 5. This patient's cardiac risk based on all the above: Low. TD: 07/03/2020 15:36 [facility]ITALOtto
[2020-07-03] MEDS ORDERED: METOCLOPRAMIDE 10 MG TABLET PO SCH (21:00)
[2020-07-04] MEDS ORDERED: LEVOTHYROXINE 112 MCG TABLET PO SCH (07:00)
== END 2020-07-03 16:06 | disposition home or self-care (01) ==
LOC: EDUNIT# → ED 09:52 → MS2 11:58
PROVIDERS: ADMIT Specialist; ATTEND Internal Medicine
DX: K29.70 Gastritis, unspecified, without bleeding (principal); R07.89 Other chest pain; H93.19 Tinnitus, unspecified ear; K21.9 Gastro-esophageal reflux disease without esophagitis; E03.9 Hypothyroidism, unspecified; I10 Essential (primary) hypertension; F40.240 Claustrophobia; Z87.11 Personal history of peptic ulcer disease; Z82.49 Family history of ischemic heart disease and other diseases of the circulatory system
CPT/HCPCS: 0202U; 36415; 43235; 71045; 76705; 80048; 81599; 83690; 83970; 84484; 85025; 93005; 93350; 96374; 96375; 99285; A9270; G0378; J7120; 80053; 84443

== ENCOUNTER 2020-08-22 03:18 | Outpatient (CLI) | payer BC ==
--- OUTSIDE RECORDS SUMMARY | 2020-08-29 00:30 | EXTERNAL MEDICAL SUMMARY RPT | Continuity of Care Document ---
:1955 Demographics Phone Unavailable Preferred Language Mohawk Marital Status Unknown Taoist Affiliation Unknown Race Unknown Ethnic Group Unknown Author Organization [place] Address [address] [phone] Phone Care Team Providers Name Role Phone MD Unavailable Unavailable Driver Unavailable Unavailable Roof Unavailable Unavailable QUIROZ Unavailable Unavailable Rochier Unavailable Unavailable Merna Unavailable Unavailable Problems date description facility 2014-08-03 16:56 OTHER SPECIFIED CYSTIC KIDNEY [facility] DISEASE 2015-01-10 12:35 ESOPHAGEAL REFLUX [facility] 2015-01-10 12:35 OTH SPECIFIED GASTRITIS,W/O [facility] MENTION OF HEMORRHAGE 2015-01-10 12:35 GASTROPARESIS [facility] 2015-01-10 12:35 DYSPHAGIA, UNSPECIFIED [facility] 2016-10-22 07:31 NEUTROPENIA, UNSPECIFIED [facility] 2016-10-22 07:31 HYPOTHYROIDISM, UNSPECIFIED [facility] 2016-10-22 07:31 ENCOUNTER FOR SCREENING FOR 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) 2020-02-28 10:13 ENCNTR FOR GENERAL ADULT MEDICAL [facility] EXAM W/O ABNORMAL FINDINGS 2020-02-28 10:13 ENCOUNTER FOR SCREENING [facility] MALIGNANT NEOPLASM OF PROSTATE 2020-03-17 09:03 GASTROPARESIS [facility] 2020-03-17 09:03 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[facility] (ORAL) 2020-03-17 09:03 FAMILY HX OF ISCHEM HEART DIS [facility] AND OTH DIS OF THE CIRC SYS 2020-04-29 06:28 OTHER CHEST PAIN [facility] 2020-04-29 06:28 UNSPECIFIED ABDOMINAL PAIN [facility] 2020-04-29 06:28 SYNCOPE AND COLLAPSE [facility] 2020-05-31 08:13 LIVER DISEASE, UNSPECIFIED [facility] 2020-06-06 00:00:00 Tobacco use and exposure [facility] 2020-06-06 00:00:00 [facility] 2020-06-12 00:00:00 Health[facility]related behavior [facility] 2020-06-12 00:00:00 Tobacco use and exposure [facility] Primary [facility] 2020-06-12 00:00:00 [facility] 2020-06-12 00:00:00 [facility] 2020-06-12 00:00:00 Alcohol [facility] 2020-06-12 00:00:00 Tobacco smoking status [facility] 2020-06-12 00:00:00 Total score? [facility] 2020-07-10 00:00:00 Tobacco use and exposure [facility] Primary [facility] 2020-07-10 00:00:00 [facility] 2020-07-31 00:00:00 Family history of other [facility] Care endocrine and metabolic diseases [facility] 2020-07-31 00:00:00 [facility] neoplasms of prostate [facility] 2020-07-31 00:00:00 COMPREHENSIVE METABOLIC PANEL [facility] Primary [facility] 2020-07-31 00:00:00 LIPIDS SCREEN [facility] 2020-07-31 00:00:00 Ferritin [facility] 2020-07-31 00:00:00 PSA, SCREENING [facility] 2020-07-31 00:00:00 CBC W/Diff/Plt [facility] 2020-07-31 00:00:00 Cough [facility] 2020-07-31 00:00:00 [facility] for [facility] malignant neoplasm of prostate [facility] 2020-07-31 00:00:00 Family history of diseases of [facility] the blood and blood-forming [facility] organs and certain disorders involving the immune mechanism 2020-07-31 00:00:00 Tobacco use and exposure [facility] 2020-07-31 00:00:00 Never smoker [facility] 2020-07-31 00:00:00 [facility]atosis [facility] 2020-07-31 00:00:00 Screening for malignant neoplasm [facility] of prostate [facility] 2020-08-27 00:00:00 Health-related behavior [facility] 2020-08-27 00:00:00 Tobacco use and exposure [facility] 2020-08-27 00:00:00 Exercise [facility] 2020-08-27 00:00:00 Never sm[facility] 2020-08-27 00:00:00 Alcohol [facility] 2020-08-27 00:00:00 Tobacco smoking status NHIS idbeyHe alth Primary Care [facility] 2020-08-27 00:00:00 Total score? [facility] Prim judi [facility] Allergies date description facility [facility] METOCLOPRAMIDE [facility] METRONIDAZOLE [facility] MORPHINE [facility] ONDANSETRON HCL [facility] PROMETHAZINE [facility] NO KNOWN ALLERGIES [facility] NO KNOWN ENVIRONMENTAL ALLERGIES [facility] NO KNOWN ALLERGIES [facility] NO ALLERGY INFORMATION AVAILABLE [facility] NO KNOWN ALLERGIES [facility] PEANUT [facility] HYDROCODONE-ACETAMINOPHEN [facility] Penicillins [facility] No Known Drug Allergies [facility] tetracycline [facility] amoxicillin [facility] METFORMIN [facility] OXYCODONE [facility] PROPOXYPHENE [facility] WARFARIN [facility] NO KNOWN ENVIRONMENTAL ALLERGIES [facility] PENICILLINS [facility] STATINS [facility] OTHER [facility] PENICILLIN [facility] PENICILLINS [facility] SULFA (SULFONAMIDE ANTIBIOTICS) [facility] ADHESIVE [facility] DOXYCYCLINE [facility] PRAVASTATIN [facility] SIMVASTATIN [facility] CHLORHEXIDINE [facility] GABAPENTIN [facility] LISINOPRIL [facility] LATEX [facility] ROSUVASTATIN CALCIUM [facility] oxycodone [facility] levofloxacin [facility] Cephalexin [facility] Moxifloxacin [facility] CI Pigment Blue 63 [facility] Aripiprazole [facility] Duloxetine [facility] Cephalosporins [facility] Sulfa Antibiotics [facility] NO KNOWN ENVIRONMENTAL ALLERGIES [facility] Penicillins [facility] tetracycline [facility] amoxicillin [facility] Medications date description facility 2020-06-06 00:00:00 null [facility] 2020-06-06 00:00:00 null [facility] 2020-06-06 00:00:00 DEXLANSOPRAZOLE [facility] 2020-06-06 00:00:00 DEXLANSOPRAZOLE [facility] 2020-06-12 00:00:00 null [facility] 2020-06-12 00:00:00 null [facility] 2020-06-12 00:00:00 SUCRALFATE [facility] 2020-06-12 00:00:00 SUCRALFATE [facility] 2020-07-10 00:00:00 null [facility] 2020-07-10 00:00:00 null [facility] 2020-07-10 00:00:00 null [facility] 2020-07-10 00:00:00 null [facility] 2020-07-10 00:00:00 FAMOTIDINE [facility] 2020-07-10 00:00:00 FAMOTIDINE [facility] 2020-07-10 00:00:00 FAMOTIDINE [facility] 2020-07-10 00:00:00 FAMOTIDINE [facility] 2020-07-31 00:00:00 null [facility] 2020-07-31 00:00:00 null [facility] 2020-07-31 00:00:00 PSYLLIUM [facility] Results Social History date description facility 2020-06-06 00:00:00 Never smoker [facility] date description facility 2020-06-12 00:00:00 Never smoker [facility] date description facility 2020-07-10 00:00:00 Never smoker [facility] date description facility 2020-07-31 00:00:00 Never smoker [facility] date description facility 2020-08-27 00:00:00 Never smoker [facility] Social History date description facility 2020-06-06 00:00:00 Never smoker [facility] date description facility 2020-06-12 00:00:00 Never smoker [facility] date description facility 2020-07-10 00:00:00 Never smoker [facility] date description facility 2020-07-31 00:00:00 Never smoker [facility] date description facility 2020-08-27 00:00:00 Never smoker [facility] date description facility [id number]
== END 2020-08-22 03:19 | disposition critical access hospital (66) ==
LOC: EMS 03:18
PROVIDERS: ATTEND Surgery
DX: R10.10 Upper abdominal pain, unspecified (principal)
CPT/HCPCS: A0425; A0427

== ENCOUNTER 2020-08-22 03:54 | Emergency (ER) | payer SELFPAY ==
--- NOTE | 2020-08-22 03:57 | ED Physician Documentation ---
PD HPI ABD PAIN - Stated complaint Stated Complaint: AB PX - History obtained from History obtained from: Patient - History of Present Illness Timing - onset: Today Timing - details: Gradual onset Quality: Fullness/distended, Pain Location: Epigastric Radiation: Chest (midline lower chest earlier today but resolved) Improved by: Other (zofran given by medics) Worsened by: Other (no exacerbating factors) Associated symptoms: No: Fever, Nausea, Vomiting, Diarrhea, Constipation Similar symptoms before: Work up / diagnostics - Additional information Additional information: BIBA. c/o extreme pressure, bloating (per patient) in epigastrium. also nausea which resolved with zofran given by medics en route. the epigastric discomfort radiated to his midline low chest earlier today, approximately 1 PM but this resolved. he continues to have sensation of epigastric distention, fullness, bloating. he was admitted to [facility] 2 months ago for similar c/o; he had negative treadmill stress test w/ echo, and EGD evidenced gastritis (per d/c summary). Review of Systems Constitutional: reports: Reviewed and negative Cardiac: reports: Chest pain / pressure (earlier today, resolved). denies: Palpitations, Pedal edema Respiratory: reports: Reviewed and negative GI: reports: Abdominal Pain, Abdominal Swelling, Nausea. denies: Vomiting, Constipation, Diarrhea : denies: Dysuria, Frequency Musculoskeletal: reports: Reviewed and negative PD PAST MEDICAL HISTORY - Past Medical History Cardiovascular: None, Other Respiratory: None Neuro: None Endocrine/Autoimmune: HyPOthyroidism GI: GERD : None HEENT: None Psych: Anxiety, Claustrophobia Musculoskeletal: None Derm: None - Past Surgical History General: Colonoscopy, EGD, Other - Present Medications Home Medications: Ambulatory Orders Medication Instructions Recorded Confirmed Levothyroxine Sodium [Levo-T] 112 mcg PO QDAC 06/12/17 08/22/20 Pantoprazole [Protonix] 40 mg PO DAILY #30 tablet 07/03/20 08/22/20 Ondansetron Odt [Zofran Odt] 4 mg TL Q6H PRN #14 tablet 08/22/20 - Allergies Allergies/Adverse Reactions: Allergies Allergy/AdvReac Type Severity Reaction Status Date / Time amoxicillin Allergy Rash Verified 08/22/20 04:05 tetracycline Allergy Hives Verified 08/22/20 04:05 Penicillins AdvReac Respiratory Verified 08/22/20 04:05 - Social History Does the pt smoke?: No Smoking Status: Never smoker Does the pt drink ETOH?: No Does the pt have substance abuse?: No - POLST Patient has POLST: No POLST Status: Full Code PD ED PE NORMAL - Vitals Vital signs reviewed: Yes - General General: Alert and oriented X 3, No acute distress, Well developed/nourished - Neck Neck: Supple, no meningeal sign - Cardiac Cardiac: RRR, No murmur, No gallop, No rub - Respiratory Respiratory: No respiratory distress, Clear bilaterally - Abdomen Abdomen: Soft, Non tender, Non distended, Other (decreased bowel sounds) - Back Back: No CVA TTP - Derm Derm: Normal color, Warm and dry Results - Vitals Vitals: Oxygen O2 Source Room air - Labs Labs: Laboratory Tests 08/22/20 08/22/20 08/22/20 04:15 04:15 06:10 WBC 6.7 RBC 4.25 L Hgb 13.6 L Hct 39.3 L MCV 92.5 MCH 32.0 H MCHC 34.6 RDW 12.1 Plt Count 210 MPV 9.7 Neut # (Auto) 4.8 Lymph # (Auto) 1.3 L [place] # (Auto) 0.5 Eos # (Auto) 0.1 Baso # (Auto) 0.0 Absolute Nucleated RBC 0.00 Nucleated RBC % 0.0 Sodium 140 Potassium 3.2 L Chloride 109 Carbon Dioxide 23 Anion Gap 8.0 BUN 22 H Creatinine 0.9 Estimated GFR (MDRD) 86 L Glucose 116 H Calcium 9.3 Total Bilirubin 1.0 AST 16 ALT 14 Alkaline Phosphatase 27 L Total Protein 6.5 L Albumin 4.0 Globulin 2.5 Albumin/Globulin Ratio 1.6 Lipase 23 Urine Color YELLOW Urine Clarity CLEAR Urine pH 6.5 Ur Specific [place] 1.010 Urine Protein NEGATIVE Urine Glucose (UA) NEGATIVE Urine Ketones NEGATIVE Urine Occult Blood NEGATIVE Urine Nitrite NEGATIVE Urine Bilirubin NEGATIVE Urine Urobilinogen 0.2 (NORMAL) Ur Leukocyte Esterase NEGATIVE Ur Microscopic Review NOT INDICATED Urine Culture Comments NOT INDICATED - Rads (name of study) CT A/P with IV+PO contrast Radiology: Prelim report reviewed, See rad report PD MEDICAL DECISION MAKING - ED course Complexity details: reviewed results, re-evaluated patient, considered differential, d/w patient Departure - Departure Disposition: 01 Home, Self Care Clinical Impression: Epigastric pain Condition: Good Instructions: ED Abdominal Pain Unkn Cause Male Follow-Up: Haseeb Driver MD [Primary Care Provider] - Prescriptions: Ondansetron Odt [Zofran Odt] 4 mg TL Q6H PRN #14 tablet PRN Reason: Nausea / Vomiting Discharge Date/Time: 08/22/20 08:50
[2020-08-22 04:24] LABS: BASOPHILS % (AUTO) 0.3 %; EOSINOPHILS # (AUTO) 0.1 10^3/uL (0.0-0.7); EOSINOPHILS % (AUTO) 1.5 %; HGB - HEMOGLOBIN 13.6 g/dL (14.0-18.0); LYMPHOCYTES # (AUTO) 1.3 10^3/uL (1.5-3.5); LYMPHOCYTES % (AUTO) 19.1 %; MEAN CORPUSCULAR HGB CONC 34.6 g/dL (32.0-36.0); MEAN CORPUSCULAR VOLUME 92.5 fL (80.0-94.0); MEAN PLATELET VOLUME 9.7 fL (7.4-11.4); MONOCYTES # (AUTO) 0.5 10^3/uL (0.0-1.0); MONOCYTES % (AUTO) 7.5 %; NEUTROPHILS # (AUTO) 4.8 10^3/uL (1.5-6.6); NEUTROPHILS % (AUTO) 71.4 %; PLT - PLATELET COUNT 210 10^3/uL (130-450); RED BLOOD COUNT 4.25 10^6/uL (4.70-6.10); RED CELL DISTRIBUTION WIDTH 12.1 % (12.0-15.0); WHITE BLOOD COUNT 6.7 x10^3/uL (4.8-10.8)
[2020-08-22 04:38] LABS: ALBUMIN/GLOBULIN RATIO 1.6 (1.0-2.2); CALCIUM 9.3 mg/dL (8.5-10.3); CREATININE 0.9 mg/dL (0.6-1.2); TOTAL PROTEIN 6.5 g/dL (6.7-8.2)
[2020-08-22] MEDS ORDERED: SODIUM CHLORIDE 0.9% 1,000 ML IV ONE (04:44)
[2020-08-22] MEDS ORDERED: IOVERSOL 320 100 ML VIAL IVP ONE ×2 (04:51→06:24)
[2020-08-22] MEDS ORDERED: IOVERSOL 320 50 ML VIAL ONE (04:52)
[2020-08-22] MEDS ORDERED: IOVERSOL 320 50 ML VIAL PO ONE (06:25)
[2020-08-22 07:01] LABS: BILIRUBIN,URINE NEGATIVE (NEGATIVE); GLUCOSE, URINE (UA) NEGATIVE (NEGATIVE); KETONES,URINE (UA) NEGATIVE (NEGATIVE); LEUKOCYTE ESTERASE, URINE NEGATIVE (NEGATIVE); NITRITE,URINE NEGATIVE (NEGATIVE); OCCULT BLOOD,URINE NEGATIVE (NEGATIVE); PH,URINE 6.5 PH (5.0-7.5); PROTEIN,URINE NEGATIVE (NEGATIVE); UROBILINOGEN,URINE 0.2 (NORMAL) E.U./dL (NORMAL)
[2020-08-22 07:03] LABS: CLARITY,URINE CLEAR (CLEAR)
[2020-08-22 08:38] VITALS: BP 120/99
--- NOTE | 2020-08-22 08:40 | CT Report ---
PROCEDURE: Abdomen/Pelvis W INDICATIONS: abd. pain, distention CONTRAST: IV CONTRAST: Optiray 320 ml: 100 PO CONTRAST: Optiray 320 ml50 TECHNIQUE: After the administration of oral contrast, 5 mm thick sections acquired from the diaphragms to the sy mphysis. 5 mm thick coronal and sagittal reformats were acquired. For radiation dose reduction, the following was used: automated exposure control, adjustment of mA and/or kV according to patient rosaline lockhart. COMPARISON: 04/29/2020 from [place] [facility] FINDINGS: Image quality: Excellent. ABDOMEN: Lung bases: Lung bases are clear. Heart size is normal. Solid organs: Liver lesion measuring approximately 1.6 cm with some nodular enhancement in segment 7 is less well visualized than on the prior study. It likely represents a hemangioma.. Gallbladder is unremarkable Biliary system is non dilated. Pancreas enhances normally. No adrenal nodules. Kidne ys demonstrate normal size and enhancement, without hydronephrosis. Extensive bilateral renal peripe lvic cysts are present. Peritoneum and bowel: Bowel loops demonstrate normal wall thickness and caliber. No free fluid or a ir. Nodes and vessels: No retroperitoneal or mesenteric adenopathy by size criteria. Aorta and inferior vena cava are normal in size. Miscellaneous: No ventral hernias. PELVIS: Genitourinary: Bladder wall thickness is normal. Miscellaneous: No inguinal hernias or adenopathy. Bones: No suspicious bony lesions. No vertebral body compression fractures. IMPRESSION: 1. No evidence of acute abdominal process. 2. Probable 1.6 cm dome of liver hemangioma again 3. Numerous bilateral renal peripelvic cysts again noted. A preliminary report with the above findings was provided at the time of the study by [facility]. Reviewed by: Lane Yates MD on 08/22/2020 8:39 AM [facility] Approved by: Lane Yates MD on 08/22/2020 8:39 AM PST Station ID: [id number]
--- OUTSIDE RECORDS SUMMARY | 2020-08-29 00:30 | EXTERNAL MEDICAL SUMMARY RPT | Continuity of Care Document ---
:1955 Demographics Phone Unavailable Preferred Language Kyrgyz Marital Status Unknown Adventist Affiliation Unknown Race Unknown Ethnic Group Unknown Author Organization [place] Address [address] [phone] Phone Care Team Providers Name Role Phone MD Unavailable Unavailable Driver Unavailable Unavailable Roof Unavailable Unavailable [place] Unavailable Unavailable QUIROZ Unavailable Unavailable Rochier Unavailable Unavailable Problems date description facility 2014-08-03 16:56 OTHER SPECIFIED CYSTIC KIDNEY [facility] DISEASE 2015-01-10 12:35 ESOPHAGEAL REFLUX [facility] 2015-01-10 12:35 OTH SPECIFIED GASTRITIS,W/O [facility] MENTION OF HEMORRHAGE 2015-01-10 12:35 GASTROPARESIS [facility] 2015-01-10 12:35 DYSPHAGIA, UNSPECIFIED 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 2017-01-15 08:18 HYPOTHYROIDISM, UNSPECIFIED [facility] 2017-01-15 08:18 OTHER CHEST PAIN [facility] 2017-01-15 08:18 CHEST PAIN, UNSPECIFIED [facility] 2017-06-22 06:13 GASTRO-ESOPHAGEAL REFLUX DISEASE [facility] WITHOUT ESOPHAGITIS 2017-06-22 06:13 UNIL INGUINAL HERNIA, W/O OBST [facility] OR GANGR, NOT SPCF RECUR 2019-12-06 04:19 PRECORDIAL PAIN [facility] 2019-12-06 04:19 OTHER CHEST PAIN [facility] 2020-02-28 10:13 HYPOTHYROIDISM, [facility]NSPECIFIED [facility] 2020-02-28 10:13 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 AND OTH DIS OF THE CIRC SYS 2020-04-29 06:28 OTHER CHEST PAIN [facility] 2020-04-29 06:28 UNSPECIFIED ABDOMINAL PAIN [facility] 2020-04-29 06:28 SYNCOPE AND COLLAPSE [facility] 2020-05-31 08:13 LIVER DISEASE, UNSPECIFIED [facility] 2020-06-06 00:00:00 Tobacco use and exposure [facility] 2020-06-06 00:00:00 [facility] 2020-06-12 00:00:00 Health[facility]related behavior [facility] 2020-06-12 00:00:00 Tobacco use and exposure [facility] 2020-06-12 00:00:00 [facility] [place] 2020-06-12 00:00:00 [facility] 2020-06-12 00:00:00 Alcohol [facility] 2020-06-12 00:00:00 Tobacco smoking status [facility] 2020-06-12 00:00:00 Total score? [facility] 2020-07-10 00:00:00 Tobacco use and exposure [facility] 2020-07-10 00:00:00 [facility] 2020-07-31 00:00:00 Family history of other [facility] endocrine and metabolic diseases [facility] 2020-07-31 00:00:00 Screening for malignant [facility] neoplasms of prostate [facility] 2020-07-31 00:00:00 COMPREHENSIVE METABOLIC PANEL [facility] Primary [facility] 2020-07-31 00:00:00 LIPIDS [facility]CREEN [facility] 2020-07-31 00:00:00 Ferritin [facility] 2020-07-31 00:00:00 PSA, S[facility]ENING [facility] 2020-07-31 00:00:00 CBC W/Diff/Plt [facility] 2020-07-31 00:00:00 Cough [facility] 2020-07-31 00:00:00 [facility] [place] malignant neoplasm of prostate [facility] 2020-07-31 00:00:00 Family history of diseases of [facility] the blood and blood-forming [facility] organs and certain disorders involving the immune mechanism 2020-07-31 00:00:00 Tobacco use and [facility] 2020-07-31 00:00:00 Never smoker [facility] 2020-07-31 00:00:00 [facility] 2020-07-31 00:00:00 Screening for malignant neoplasm [facility] of prostate [facility] 2020-08-27 00:00:00 Health-related behavior [facility] 2020-08-27 00:00:00 Tobacco use and exposure [facility] 2020-08-27 00:00:00 [facility] 2020-08-27 00:00:00 [facility] 2020-08-27 00:00:00 Alcohol use [facility] 2020-08-27 00:00:00 Tobacco smoking status NHIS [facility] 2020-08-27 00:00:00 Total score? [facility] Prim judi [facility] Allergies date description facility [facility] METOCLOPRAMIDE [facility] METRONIDAZOLE [facility] MORPHINE [facility] ONDANSETRON HCL [facility] PROMETHAZINE [facility] NO KNOWN ALLERGIES [facility] NO KNOWN ENVIRONMENTAL ALLERGIES [facility] NO KNOWN ALLERGIES [facility] NO ALLERGY INFORMATION AVAILABLE [facility] NO KNOWN ALLERGIES [facility] PEANUT [facility] HYDROCODONE-ACETAMINOPHEN [facility] Penicillins [facility] No Known Drug Allergies [facility] tetracycline [facility] amoxicillin [facility] METFORMIN [facility] OXYCODONE [facility] PROPOXYPHENE [facility] WARFARIN [facility] NO KNOWN ENVIRONMENTAL ALLERGIES [facility] PENICILLINS [facility] STATINS [facility] OTHER [facility] PENICILLIN [facility] PENICILLINS [facility] SULFA (SULFONAMIDE ANTIBIOTICS) [facility] ADHESIVE [facility] DOXYCYCLINE [facility] PRAVASTATIN [facility] SIMVASTAT[facility] CHLORHEXIDINE [facility] GABAPENTIN [facility] LISINOPRIL [facility] LATEX [facility] ROSUVASTATIN CALCIUM [facility] oxycodone [facility] levofloxacin [facility] Cephalexin [facility] Moxifloxacin [facility] CI Pigment Blue 63 [facility] Aripiprazole [facility] Duloxetine [facility] Cephalosporins [facility] Sulfa Antibiotics [facility] NO KNOWN ENVIRONMENTAL ALLERGIES [facility] Penicillins [facility] tetracycline [facility] amoxicillin [facility] Medications date description facility 2020-06-06 00:00:00 null [facility] 2020-06-06 00:00:00 null [facility] 2020-06-06 00:00:00 DEXLANSOPRAZOLE [facility] 2020-06-06 00:00:00 DEXLANSOPRAZOLE [facility] 2020-06-12 00:00:00 null [facility] 2020-06-12 00:00:00 null [facility] 2020-06-12 00:00:00 SUCRALFATE [facility] 2020-06-12 00:00:00 SUCRALFATE [facility] 2020-07-10 00:00:00 null [facility] 2020-07-10 00:00:00 null [facility] 2020-07-10 00:00:00 null [facility] 2020-07-10 00:00:00 null [facility] 2020-07-10 00:00:00 FAMOTIDINE [facility] 2020-07-10 00:00:00 FAMOTIDINE [facility] 2020-07-10 00:00:00 FAMOTIDINE [facility] 2020-07-10 00:00:00 FAMOTIDINE [facility] 2020-07-31 00:00:00 null [facility] 2020-07-31 00:00:00 null [facility] 2020-07-31 00:00:00 PSYLLIUM [facility] Results Social History date description facility 2020-06-06 00:00:00 Never smoker [facility] date description facility 2020-06-12 00:00:00 Never smoker [facility] date description facility 2020-07-10 00:00:00 Never smoker [facility] date description facility 2020-07-31 00:00:00 Never smoker [facility] date description facility 2020-08-27 00:00:00 Never smoker [facility] Social History date description facility 2020-06-06 00:00:00 Never smoker [facility] date description facility 2020-06-12 00:00:00 Never smoker [facility] date description facility 2020-07-10 00:00:00 Never smoker [facility] date description facility 2020-07-31 00:00:00 Never smoker [facility] date description facility 2020-08-27 00:00:00 Never smoker [facility] date description facility [id number]
== END 2020-08-22 08:50 | disposition home or self-care (01) ==
LOC: EDUNIT# → ED 03:54
DX: R10.13 Epigastric pain (principal); R11.0 Nausea
CPT/HCPCS: 36415; 74177; 80053; 81003; 83690; 85025; 99284; Q9967; 81001; 87086

== ENCOUNTER 2020-08-27 11:38 | Outpatient (CLI) | payer BC | END 2020-08-27 11:39 | disposition critical access hospital (66) | LOC: EMS 11:38 | PROVIDERS: ATTEND Surgery | DX: R10.9 Unspecified abdominal pain (principal) | CPT/HCPCS: A0425; A0427 ==

== ENCOUNTER 2020-08-27 12:06 | Emergency (ER) | payer BC ==
[2020-08-27] MEDS ORDERED: SODIUM CHLORIDE 0.9% 1,000 ML IV STA ×3 (13:07→16:29)
[2020-08-27] MEDS ORDERED: PROMETHAZINE INJ 25 MG in SODIUM CHLORIDE 0.9% 50 ML IV STA (13:07)
[2020-08-27] MEDS ORDERED: ONDANSETRON 4 MG/2 ML VIAL IVP STA ×2 (13:14→13:15)
[2020-08-27] MEDS ORDERED: KETOROLAC 30 MG/ML VIAL IVP STA (13:15)
[2020-08-27 13:18] LABS: ALBUMIN 4.5 g/dL (3.2-5.5); ALBUMIN/GLOBULIN RATIO 1.9 (1.0-2.2); CALCIUM 9.6 mg/dL (8.5-10.3); CREATININE 1.1 mg/dL (0.6-1.2); TOTAL PROTEIN 6.9 g/dL (6.7-8.2)
--- NOTE | 2020-08-27 13:18 | ED Physician Documentation ---
History of Present Illness - Stated complaint Stated Complaint: LLQ ABD PX - Chief complaint Chief Complaint: Abd Pain - History obtained from History obtained from: Patient - History of Present Illness Timing: Today Pain level max: 0 Pain level now: 0 - Additonal information Additional information: Patient is a 64-year-old male who presents this morning with sudden onset of left lower quadrant abdominal pain accompanied by vomiting. No diarrhea. States felt constipated earlier today. No fevers or chills. Nothing makes it better or worse. He was sent from the walk-in clinic for evaluation. Came in by EMS. Has never had a history of kidney stones. No history of diverticulitis. No recent antibiotics. No recent travel. Pain radiates to his low back and the left testicle Review of Systems Ten Systems: 10 systems reviewed and negative Constitutional: denies: Fever, Chills Throat: denies: Sore throat Cardiac: denies: Chest pain / pressure Respiratory: denies: Cough GI: reports: Abdominal Pain, Nausea, Vomiting. denies: Diarrhea, Hematemesis, Bloody / black stool : denies: Dysuria, Frequency, Hesitancy PD PAST MEDICAL HISTORY - Past Medical History Past Medical History: Yes Cardiovascular: None, Other Respiratory: None Neuro: None Endocrine/Autoimmune: HyPOthyroidism GI: GERD : None HEENT: None Psych: Anxiety, Claustrophobia Musculoskeletal: None Derm: None - Past Surgical History Past Surgical History: Yes General: Colonoscopy, EGD, Other - Present Medications Home Medications: Ambulatory Orders Medication Instructions Recorded Confirmed Levothyroxine Sodium [Levo-T] 112 mcg PO QDAC 06/12/17 08/27/20 HYDROcod/ACETAM 5/325 [Bonifay 5/325] 1 - 2 ea PO Q6H PRN #14 tablet 08/27/20 Ibuprofen [Motrin] 800 mg PO Q8H PRN #30 tablet 08/27/20 Ondansetron Odt [Zofran] 4 mg TL Q6H PRN #10 tablet 08/27/20 Tamsulosin [Flomax] 0.4 mg PO DAILY #14 capsule 08/27/20 - Allergies Allergies/Adverse Reactions: Allergies Allergy/AdvReac Type Severity Reaction Status Date / Time amoxicillin Allergy Rash Verified 08/27/20 12:20 tetracycline Allergy Hives Verified 08/27/20 12:20 Penicillins AdvReac Respiratory Verified 08/27/20 12:20 - Social History Does the pt smoke?: No Smoking Status: Never smoker Does the pt drink ETOH?: No Does the pt have substance abuse?: No Substance Use and Type: Marijuana - Immunizations Immunizations are current?: Yes - POLST Patient has POLST: No POLST Status: Full Code PD ED PE NORMAL - Vitals Vital signs reviewed: Yes - General General: Alert and oriented X 3, Well developed/nourished, Other (Appears in pain) - HEENT HEENT: PERRL, Moist mucous membranes - Neck Neck: Supple, no meningeal sign - Cardiac Cardiac: RRR, Strong equal pulses - Respiratory Respiratory: No respiratory distress, Clear bilaterally - Abdomen Abdomen: Normal bowel sounds, Soft, Non distended, Other (Tender to palpation left lower quadrant, left upper quadrant. No peritoneal signs) - Back Back: No CVA TTP - Derm Derm: Warm and dry - Extremities Extremities: No edema - Neuro Neuro: Alert and oriented X 3 - Psych Psych: Normal mood, Normal affect Results - Vitals Vitals: Vital Signs - 24 hr 08/27/20 08/27/20 08/27/20 12:08 12:13 14:13 Temperature 35.5 C L Heart Rate 97 53 L 49 L Respiratory 20 18 16 Rate Blood Pressure 157/102 H 138/91 H 116/68 O2 Saturation 100 100 100 08/27/20 16:00 Temperature 37.2 C Heart Rate 64 Respiratory 18 Rate Blood Pressure 111/57 L O2 Saturation 98 Oxygen O2 Source Room air - Labs Labs: Laboratory Tests 08/27/20 08/27/20 08/27/20 13:00 13:51 15:07 WBC 12.0 H RBC 4.34 L Hgb 13.9 L Hct 41.6 L MCV 95.9 H MCH 32.0 H MCHC 33.4 RDW 12.1 Plt Count 209 MPV 10.1 Neut # (Auto) 10.9 H Lymph # (Auto) 0.6 L [place] # (Auto) 0.4 Eos # (Auto) 0.0 Baso # (Auto) 0.0 Absolute Nucleated RBC 0.00 Nucleated RBC % 0.0 Sodium 142 Potassium 3.7 Chloride 106 Carbon Dioxide 22 Anion Gap 14.0 H BUN 22 H Creatinine 1.1 Estimated GFR (MDRD) 68 L Glucose 111 H Calcium 9.6 Total Bilirubin 1.0 AST 19 ALT 15 Alkaline Phosphatase 31 L Total Protein 6.9 Albumin 4.5 Globulin 2.4 Albumin/Globulin Ratio 1.9 Lipase 21 L Urine Color YELLOW Urine Clarity HAZY Urine pH 7.0 Ur Specific [place] 1.010 Urine Protein NEGATIVE Urine Glucose (UA) NEGATIVE Urine Ketones 15 H Urine Occult Blood SMALL H Urine Nitrite NEGATIVE Urine Bilirubin NEGATIVE Urine Urobilinogen 0.2 (NORMAL) Ur Leukocyte Esterase NEGATIVE Ur Microscopic Review INDICATED Urine Culture Comments Not Reportable - Rads (name of study) CT abd/pelvis Radiology: Prelim report reviewed, EMP read contemporaneously, See rad report PD MEDICAL DECISION MAKING - ED course Complexity details: reviewed results, re-evaluated patient, considered diffe rential, d/w patient ED course: 64-year-old male with a 2 mm left ureteral stone. Pain well controlled in the emergency department. No further vomiting. Will prescribe pain medication for home. Given hydration. No evidence of UTI. No evidence of sepsis. Patient counseled regarding signs and symptoms for which I believe and urgent re- evaluation would be necessary. Patient with good understanding of and agreement to plan and is comfortable going home at this time This document was made in part using voice recognition software. While efforts are made to proofread this document, sound alike and grammatical errors may occur. IMPRESSION: 1. Mildly obstructing 2 mm proximal left ureteral stone with associated left ureteral stranding proximal to the stone. There is mild interval increase in prominence of extensive left renal peripelvic cysts. Recommend correlating for concurrent symptoms of infectious uropathy. 2. Stable appearance of prominent right renal peripelvic cysts without evidence for urolithiasis or obstructive uropathy. 3. Otherwise, stable CT evaluation of abdomen and pelvis. Departure - Departure Disposition: 01 Home, Self Care Clinical Impression: Ureteral calculus, left Condition: Good Instructions: ED Stone Renal W Colic Follow-Up: Haseeb Driver MD [Primary Care Provider] - Within 1 week Prescriptions: Tamsulosin [Flomax] 0.4 mg PO DAILY #14 capsule Ibuprofen [Motrin] 800 mg PO Q8H PRN #30 tablet PRN Reason: PAIN &/OR FEVER HYDROcod/ACETAM 5/325 [Bonifay 5/325] 1 - 2 ea PO Q6H PRN #14 tablet PRN Reason: Pain Ondansetron Odt [Zofran] 4 mg TL Q6H PRN #10 tablet PRN Reason: Nausea / Vomiting Comments: Drink plenty of water. Return if you worsen. You do have a 2 mm stone and this should pass on its own. You also have peripelvic renal cysts. These generally do not cause any issue, but can be followed up with your doctor
[2020-08-27] MEDS ORDERED: IOVERSOL 320 100 ML VIAL IVP ONE ×2 (13:30→13:47)
[2020-08-27 13:58] LABS: BASOPHILS % (AUTO) 0.1 %; EOSINOPHILS % (AUTO) 0.1 %; HGB - HEMOGLOBIN 13.9 g/dL (14.0-18.0); LYMPHOCYTES # (AUTO) 0.6 10^3/uL (1.5-3.5); LYMPHOCYTES % (AUTO) 5.1 %; MEAN CORPUSCULAR HGB CONC 33.4 g/dL (32.0-36.0); MEAN CORPUSCULAR VOLUME 95.9 fL (80.0-94.0); MEAN PLATELET VOLUME 10.1 fL (7.4-11.4); MONOCYTES # (AUTO) 0.4 10^3/uL (0.0-1.0); MONOCYTES % (AUTO) 3.6 %; NEUTROPHILS # (AUTO) 10.9 10^3/uL (1.5-6.6); NEUTROPHILS % (AUTO) 90.8 %; PLT - PLATELET COUNT 209 10^3/uL (130-450); RED BLOOD COUNT 4.34 10^6/uL (4.70-6.10); RED CELL DISTRIBUTION WIDTH 12.1 % (12.0-15.0)
--- NOTE | 2020-08-27 14:50 | CT Report ---
PROCEDURE: Abdomen/Pelvis W INDICATIONS: LLQ abd pain CONTRAST: IV CONTRAST: Optiray 320 ml: 100 PO CONTRAST: *NO PO CONTRAST TECHNIQUE: After the administration of weight appropriate dose of intravenous contrast, 5 mm thick sections acqu ired from the diaphragms to the symphysis. 5 mm thick coronal and sagittal reformats were acquired. For radiation dose reduction, the following was used: automated exposure control, adjustment of mA and/or kV according to patient size. COMPARISON: 08/22/2020 and 04/29/2020. FINDINGS: Image quality: Excellent. ABDOMEN: Lung bases: Patchy bibasilar atelectasis. Heart size is normal. Solid organs: Liver and spleen are normal in size and enhancement. Previously described 1.5 cm hepat ic dome hypodensity is not as conspicuous on today's study and again likely represents a hemangioma. Gallbladder is unremarkable. Biliary system is non dilated. Pancreas enhances normally. No adrena l nodules. Redemonstration of extensive bilateral renal peripelvic cysts with new 2 mm proximal left ureteral stone (image 50, series 3) with associated mild hydroureter proximally as well as mild surro unding inflammatory stranding. No hydronephrosis on the right. No uroliths noted on the right. Peritoneum and bowel: Bowel loops demonstrate normal wall thickness and caliber. No free fluid or a ir. Nodes and vessels: No retroperitoneal or mesenteric adenopathy by size criteria. Aorta and inferior vena cava are normal in size. Miscellaneous: No ventral hernias. PELVIS: Genitourinary: Bladder wall thickness is normal. Miscellaneous: No inguinal hernias or adenopathy. Bones: No suspicious bony lesions. No vertebral body compression fractures. IMPRESSION: 1. Mildly obstructing 2 mm proximal left ureteral stone with associated left ureteral stranding proxi mal to the stone. There is mild interval increase in prominence of extensive left renal peripelvic cy sts. Recommend correlating for concurrent symptoms of infectious uropathy. 2. Stable appearance of prominent right renal peripelvic cysts without evidence for urolithiasis or o bstructive uropathy. 3. Otherwise, stable CT evaluation of abdomen and pelvis. Reviewed by: Lan Edwards MD on 08/27/2020 1:49 PM [facility] Approved by: Lan Edwards MD on 08/27/2020 1:49 PM [facility] Station ID: [id number]
[2020-08-27 16:50] LABS: BILIRUBIN,URINE NEGATIVE (NEGATIVE); GLUCOSE, URINE (UA) NEGATIVE (NEGATIVE); KETONES,URINE (UA) 15 mg/dL (NEGATIVE); LEUKOCYTE ESTERASE, URINE NEGATIVE (NEGATIVE); NITRITE,URINE NEGATIVE (NEGATIVE); OCCULT BLOOD,URINE SMALL (NEGATIVE); PROTEIN,URINE NEGATIVE (NEGATIVE); UROBILINOGEN,URINE 0.2 (NORMAL) E.U./dL (NORMAL)
[2020-08-27 16:53] LABS: CLARITY,URINE HAZY (CLEAR)
[2020-08-27 17:05] VITALS: BP 103/66
[2020-08-27 17:08] LABS: BACTERIA,URINE None Seen /HPF (None Seen); MUCUS,URINE Few Strands; SQUAMOUS EPITHELIAL CELL,UR NONE SEEN (<= Few)
== END 2020-08-27 17:14 | disposition home or self-care (01) ==
LOC: EDUNIT# → ED 12:06
DX: N20.1 Calculus of ureter (principal); N28.1 Cyst of kidney, acquired
CPT/HCPCS: 36415; 74177; 80053; 81001; 83690; 85025; 96361; 96374; 99284; J7040; Q9967; 81003; 87086

== ENCOUNTER 2020-09-02 12:03 | Emergency (ER) | payer BC ==
[2020-09-02] MEDS ORDERED: LACTATED RINGERS 1,000 ML IV STA (12:22)
[2020-09-02] MEDS ORDERED: SODIUM CHLORIDE 0.9% 1,000 ML IV STA (12:22)
--- NOTE | 2020-09-02 12:22 | ED Physician Documentation ---
PD HPI ABD PAIN - Stated complaint Stated Complaint: VOMITING - Chief complaint Chief Complaint: Abd Pain - History obtained from History obtained from: Patient - Additional information Additional information: 64-year-old gentleman with some chronic GI issues but otherwise pretty healthy was seen here on the of this month with a 2 mm left-sided ureterolith at the proximal left ureter. Since then he has had still a lot of problems with pain and vomiting. Over the last 2 days he has not urinated at all. His now feels quite dry. Nausea is not too bad at this point but pain is still signifi cant after taking a hydrocodone about an hour prior to arrival. Review of Systems Constitutional: denies: Fever, Chills GI: reports: Abdominal Pain, Nausea, Vomiting. denies: Constipation, Diarrhea : reports: Unable to Void PD PAST MEDICAL HISTORY - Past Medical History Cardiovascular: None, Other Respiratory: None Neuro: None Endocrine/Autoimmune: HyPOthyroidism GI: GERD : None HEENT: None Psych: Anxiety, Claustrophobia Musculoskeletal: None Derm: None - Past Surgical History Past Surgical History: Yes General: Colonoscopy, EGD, Other - Present Medications Home Medications: Ambulatory Orders Medication Instructions Recorded Confirmed Levothyroxine Sodium [Levo-T] 112 mcg PO QDAC 06/12/17 08/27/20 HYDROcod/ACETAM 5/325 [Amorita 5/325] 1 - 2 ea PO Q6H PRN #14 tablet 08/27/20 Ibuprofen [Motrin] 800 mg PO Q8H PRN #30 tablet 08/27/20 Ondansetron Odt [Zofran] 4 mg TL Q6H PRN #10 tablet 08/27/20 Tamsulosin [Flomax] 0.4 mg PO DAILY #14 capsule 08/27/20 Metoclopramide [Reglan] 10 mg PO Q6H PRN #20 tablet 09/02/20 - Allergies Allergies/Adverse Reactions: Allergies Allergy/AdvReac Type Severity Reaction Status Date / Time amoxicillin Allergy Rash Verified 09/02/20 12:11 tetracycline Allergy Hives Verified 09/02/20 12:11 Penicillins AdvReac Respiratory Verified 09/02/20 12:11 - Social History Does the pt smoke?: No Smoking Status: Never smoker Does the pt drink ETOH?: No Does the pt have substance abuse?: No - Immunizations Immunizations are current?: Yes - POLST Patient has POLST: No POLST Status: Full Code PD ED PE NORMAL - Vitals Vital signs reviewed: Yes - General General: Alert and oriented X 3, No acute distress - Abdomen Abdomen: Normal bowel sounds, Soft, Non tender - Back Back: No CVA TTP, No spinal TTP - Derm Derm: Normal color, Warm and dry - Extremities Extremities: No edema, No calf tenderness / cord - Neuro Neuro: Alert and oriented X 3, No motor deficit, No sensory deficit, Normal speech Results - Vitals Vitals: Vital Signs - 24 hr 09/02/20 09/02/20 09/02/20 12:11 12:15 14:06 Temperature 37 C 37.0 C 37.2 C Heart Rate 60 60 56 L Respiratory 20 20 16 Rate Blood Pressure 125/86 H 125/86 H 131/75 H O2 Saturation 98 98 99 09/02/20 09/02/20 14:30 15:11 Temperature Heart Rate 74 77 Respiratory 20 16 Rate Blood Pressure 114/87 H 104/77 O2 Saturation 93 99 Oxygen O2 Source Room air - Labs Labs: Laboratory Tests 09/02/20 09/02/20 09/02/20 12:35 12:35 14:30 WBC 9.5 RBC 4.07 L Hgb 13.4 L Hct 38.6 L MCV 94.8 H MCH 32.9 H MCHC 34.7 RDW 11.9 L Plt Count 188 MPV 9.9 Neut # (Auto) 8.4 H Lymph # (Auto) 0.5 L [place] # (Auto) 0.6 Eos # (Auto) 0.0 Baso # (Auto) 0.0 Absolute Nucleated RBC 0.00 Nucleated RBC % 0.0 Sodium 140 Potassium 3.7 Chloride 103 Carbon Dioxide 23 Anion Gap 14.0 H BUN 19 Creatinine 1.2 Estimated GFR (MDRD) 61 L Glucose 114 H Calcium 8.7 Total Bilirubin 0.9 AST 12 ALT 12 Alkaline Phosphatase 34 L Total Protein 6.7 Albumin 3.8 Globulin 2.9 Albumin/Globulin Ratio 1.3 Lipase 22 Urine Color YELLOW Urine Clarity CLEAR Urine pH 6.0 Ur Specific [place] 1.025 Urine Protein NEGATIVE Urine Glucose (UA) NEGATIVE Urine Ketones 40 H Urine Occult Blood MODERATE H Urine Nitrite NEGATIVE Urine Bilirubin NEGATIVE Urine Urobilinogen 0.2 (NORMAL) Ur Leukocyte Esterase NEGATIVE Urine RBC 6-10 H Urine WBC 4-5 Ur Squamous Epith Cells NONE SEEN Urine Bacteria Rare Ur Microscopic Review INDICATED Urine Culture Comments NOT INDICATED PD MEDICAL DECISION MAKING - ED course ED course: 64-year-old gentleman with known 2 mm left-sided ureterolith presents with sensation of urinary retention. Also uncontrolled pain. He had been avoiding taking hydrocodone at home. Initial bladder scan was insignificant so initially thought it was likely dehydration and poor urine output but relatively stable BUN and creatinine did not correlate with that and I personally did a bedside ultrasound which actually showed a dilated bladder but with some overlying bowel gas which I think obscured the bladder scan. Straight cath was done with 500 mL out and he felt much better. He was offered an indwelling catheter, but would like to try expectant management without a catheter noting that he has always "had difficulty peeing under pressure" and feels like he will be able to go at home. Departure - Departure Disposition: 01 Home, Self Care Clinical Impression: Ureteral calculus, left, Urinary retention Condition: Good Record reviewed to determine appropriate education?: Yes Instructions: ED Retention Urinary Male Follow-Up: Garth Elizabeth MD [Provider Admit Priv/Credential] - Prescriptions: Metoclopramide [Reglan] 10 mg PO Q6H PRN #20 tablet PRN Reason: nausea or headache Comments: Continue the Flomax and hydrocodone. I am prescribing a different nausea medicine. Return if still unable to urinate.
[2020-09-02] MEDS ORDERED: HYDROmorphone 1 MG/ML CARPUJECT IVP STA ×2 (12:23→13:23)
[2020-09-02 12:38] LABS: BASOPHILS % (AUTO) 0.2 %; EOSINOPHILS % (AUTO) 0.1 %; HGB - HEMOGLOBIN 13.4 g/dL (14.0-18.0); LYMPHOCYTES # (AUTO) 0.5 10^3/uL (1.5-3.5); LYMPHOCYTES % (AUTO) 4.8 %; MEAN CORPUSCULAR HEMOGLOBIN 32.9 pg (27.0-31.0); MEAN CORPUSCULAR HGB CONC 34.7 g/dL (32.0-36.0); MEAN CORPUSCULAR VOLUME 94.8 fL (80.0-94.0); MEAN PLATELET VOLUME 9.9 fL (7.4-11.4); MONOCYTES # (AUTO) 0.6 10^3/uL (0.0-1.0); MONOCYTES % (AUTO) 6.3 %; NEUTROPHILS # (AUTO) 8.4 10^3/uL (1.5-6.6); NEUTROPHILS % (AUTO) 88.3 %; PLT - PLATELET COUNT 188 10^3/uL (130-450); RED BLOOD COUNT 4.07 10^6/uL (4.70-6.10); RED CELL DISTRIBUTION WIDTH 11.9 % (12.0-15.0); WHITE BLOOD COUNT 9.5 x10^3/uL (4.8-10.8)
[2020-09-02] MEDS ORDERED: ONDANSETRON 4 MG/2 ML VIAL IVP STA (12:50)
[2020-09-02 12:52] LABS: ALBUMIN 3.8 g/dL (3.2-5.5); ALBUMIN/GLOBULIN RATIO 1.3 (1.0-2.2); BILIRUBIN,TOTAL 0.9 mg/dL (0.2-1.0); CALCIUM 8.7 mg/dL (8.5-10.3); CREATININE 1.2 mg/dL (0.6-1.2); TOTAL PROTEIN 6.7 g/dL (6.7-8.2)
[2020-09-02 14:48] LABS: GLUCOSE, URINE (UA) NEGATIVE (NEGATIVE); KETONES,URINE (UA) 40 mg/dL (NEGATIVE); LEUKOCYTE ESTERASE, URINE NEGATIVE (NEGATIVE); NITRITE,URINE NEGATIVE (NEGATIVE); OCCULT BLOOD,URINE MODERATE (NEGATIVE); PROTEIN,URINE NEGATIVE (NEGATIVE); UROBILINOGEN,URINE 0.2 (NORMAL) E.U./dL (NORMAL)
[2020-09-02 14:59] LABS: BILIRUBIN,URINE NEGATIVE (NEGATIVE); CLARITY,URINE CLEAR (CLEAR); ICTOTEST,URINE NEGATIVE
[2020-09-02 15:00] LABS: BACTERIA,URINE Rare /HPF (None Seen); SQUAMOUS EPITHELIAL CELL,UR NONE SEEN (<= Few)
[2020-09-02 15:12] VITALS: BP 104/77
== END 2020-09-02 15:21 | disposition home or self-care (01) ==
LOC: ED 12:03
DX: R33.9 Retention of urine, unspecified (principal); N20.1 Calculus of ureter
CPT/HCPCS: 36415; 51701; 80053; 81001; 83690; 85025; 96361; 96374; 96375; 96376; 99283; 99284; J1170; J7120; 81003; 87086

== ENCOUNTER 2020-10-23 16:35 | Emergency (ER) | payer BC ==
[2020-10-23 17:10] LABS: BASOPHILS % (AUTO) 0.5 %; EOSINOPHILS # (AUTO) 0.1 10^3/uL (0.0-0.7); EOSINOPHILS % (AUTO) 1.6 %; HCT - HEMATOCRIT 43.5 % (42.0-52.0); HGB - HEMOGLOBIN 14.7 g/dL (14.0-18.0); LYMPHOCYTES # (AUTO) 1.6 10^3/uL (1.5-3.5); LYMPHOCYTES % (AUTO) 27.2 %; MEAN CORPUSCULAR HEMOGLOBIN 32.3 pg (27.0-31.0); MEAN CORPUSCULAR HGB CONC 33.8 g/dL (32.0-36.0); MEAN CORPUSCULAR VOLUME 95.6 fL (80.0-94.0); MEAN PLATELET VOLUME 10.4 fL (7.4-11.4); MONOCYTES # (AUTO) 0.6 10^3/uL (0.0-1.0); MONOCYTES % (AUTO) 9.7 %; NEUTROPHILS # (AUTO) 3.5 10^3/uL (1.5-6.6); NEUTROPHILS % (AUTO) 60.8 %; PLT - PLATELET COUNT 215 10^3/uL (130-450); RED BLOOD COUNT 4.55 10^6/uL (4.70-6.10); RED CELL DISTRIBUTION WIDTH 12.6 % (12.0-15.0); WHITE BLOOD COUNT 5.8 x10^3/uL (4.8-10.8)
[2020-10-23 17:18] LABS: ALBUMIN 4.1 g/dL (3.2-5.5); BILIRUBIN,TOTAL 0.3 mg/dL (0.2-1.0); CALCIUM 9.2 mg/dL (8.5-10.3); CREATININE 0.8 mg/dL (0.6-1.2); POTASSIUM 4.2 mmol/L (3.5-5.0); TOTAL PROTEIN 6.5 g/dL (6.7-8.2)
[2020-10-23 17:19] LABS: ALBUMIN/GLOBULIN RATIO 1.7 (1.0-2.2)
--- NOTE | 2020-10-23 17:31 | ED Physician Documentation ---
History of Present Illness - Stated complaint Stated Complaint: RECTAL BLEEDING - Chief complaint Chief Complaint: Abd Pain - Additonal information Additional information: 65-year-old male presents to the emergency department for evaluation of rectal bleeding. He reports that this a.m. he had very dark stools with a large amount of blood in it. He also had some chest and shoulder pain and therefore took 2 baby aspprin. He did reports feelign somewhat lightheaded after the shakila bowel movement, but not since. Since then he has had 2 additional episodes of bloody stools. He did go to the walk-in clinic and then was referred to Dr. Enriquez for further evaluation this afternoon. Dr. Enriquez did see him in clinic this afternoon and advised him that should he feel short of breath or develop worsening bleeding he is to go to the emergency department. Her plan was to schedule him for outpatient colonoscopy and EGD this upcoming . However shortly after Dr. Enriquez left the exam room the MA entered the room and told pt to go to the ED. Pt thought Dr. Enriquez may have changed her mind, therefore he comes here Deneis fevers. + epigastric pain. No vomiting. Colonoscopy 9 years ago was reportedly normal. Pt is not anticoagulated. Denies taking marissa ASA. No tobacco. No ETOH Review of Systems Constitutional: denies: Fever, Chills Eyes: reports: Reviewed and negative Ears: reports: Reviewed and negative Nose: reports: Reviewed and negative Throat: reports: Reviewed and negative Cardiac: reports: Chest pain / pressure Respiratory: reports: Reviewed and negative GI: reports: Abdominal Pain, Bloody / black stool. denies: Nausea, Vomiting, Constipation, Diarrhea, Hematemesis : reports: Dysuria, Reviewed and negative Skin: denies: Rash Musculoskeletal: reports: Reviewed and negative Neurologic: reports: Reviewed and negative PD PAST MEDICAL HISTORY - Past Medical History Past Medical History: Yes Cardiovascular: None, Other Respiratory: None Neuro: None Endocrine/Autoimmune: HyPOthyroidism GI: GERD : None HEENT: None Psych: Anxiety, Claustrophobia Musculoskeletal: None Derm: None - Past Surgical History Past Surgical History: Yes General: Colonoscopy, EGD, Other - Present Medications Home Medications: Ambulatory Orders Medication Instructions Recorded Confirmed Levothyroxine Sodium [Levo-T] 112 mcg PO QDAC 06/12/17 10/23/20 Famotidine [Pepcid AC] 80 mg PO DAILY 10/23/20 10/23/20 - Allergies Allergies/Adverse Reactions: Allergies Allergy/AdvReac Type Severity Reaction Status Date / Time amoxicillin Allergy Rash Verified 10/23/20 16:40 tetracycline Allergy Hives Verified 10/23/20 16:40 Penicillins AdvReac Respiratory Verified 10/23/20 16:40 - Social History Does the pt smoke?: No Smoking Status: Never smoker Does the pt drink ETOH?: No Does the pt have substance abuse?: Yes Substance Use and Type: Marijuana - Immunizations Immunizations are current?: Yes - POLST Patient has POLST: No POLST Status: Full Code PD ED PE NORMAL - General General: Alert and oriented X 3, No acute distress, Well developed/nourished - HEENT HEENT: Moist mucous membranes - Neck Neck: Supple, no meningeal sign, No adenopathy - Cardiac Cardiac: RRR, No murmur - Respiratory Respiratory: No respiratory distress, Clear bilaterally - Abdomen Abdomen: Normal bowel sounds, Soft. No: Non tender (Mild epigastric tenderness without guarding or rebound. No lower abdominal or pelvic tenderness elicited.) - Back Back: No CVA TTP, No spinal TTP - Derm Derm: Normal color, Warm and dry, No rash - Extremities Extremities: No deformity, No tenderness to palpate, Normal ROM s pain, No edema - Neuro Neuro: Alert and oriented X 3, director diversity 2-12 intact Eye Opening: Spontaneous Motor: Obeys Commands Verbal: Oriented GCS Score: 15 Results - Vitals Vitals: Vital Signs - 24 hr 10/23/20 10/23/20 16:37 16:49 Temperature 36.4 C L Heart Rate 63 57 L Respiratory 16 20 Rate Blood Pressure 127/78 114/76 O2 Saturation 97 97 Oxygen O2 Source Room air - EKG (time done) 1723 Rate: Rate (enter#) (55) Rhythm: NSR [place]: Normal QRS: Poor R wave progression Ischemia: Normal ST segments Compare to prior EKG: Unchanged from prior EKG Computer interpretation: Agree with computer - Labs Labs: Laboratory Tests 10/23/20 10/23/20 10/23/20 16:50 16:50 16:50 WBC 5.8 RBC 4.55 L Hgb 14.7 Hct 43.5 MCV 95.6 H MCH 32.3 H MCHC 33.8 RDW 12.6 Plt Count 215 MPV 10.4 Neut # (Auto) 3.5 Lymph # (Auto) 1.6 [place] # (Auto) 0.6 Eos # (Auto) 0.1 Baso # (Auto) 0.0 Absolute Nucleated RBC 0.00 Nucleated RBC % 0.0 Whole Blood INR Sodium 144 Potassium 4.2 Chloride 107 Carbon Dioxide 26 Anion Gap 11.0 BUN 25 H Creatinine 0.8 Estimated GFR (MDRD) 98 Glucose 93 Calcium 9.2 Total Bilirubin 0.3 AST 21 ALT 18 Alkaline Phosphatase 34 L Troponin I High Sens 3.0 Total Protein 6.5 L Albumin 4.1 Globulin 2.4 Albumin/Globulin Ratio 1.7 Lipase 30 10/23/20 17:34 WBC RBC Hgb Hct MCV MCH MCHC RDW Plt Count MPV Neut # (Auto) Lymph # (Auto) [place] # (Auto) Eos # (Auto) Baso # (Auto) Absolute Nucleated RBC Nucleated RBC % Whole Blood INR 0.9 Sodium Potassium Chloride Carbon Dioxide Anion Gap BUN Creatinine Estimated GFR (MDRD) Glucose Calcium Total Bilirubin AST ALT Alkaline Phosphatase Troponin I High Sens Total Protein Albumin Globulin Albumin/Globulin Ratio Lipase - Rads (name of study) CT abd Radiology: Final report received (GI bleeding is not found. Note is again made of bilateral parapelvic renal cysts.) PD MEDICAL DECISION MAKING - ED course Complexity details: reviewed results, re-evaluated patient, considered differential, d/w patient ED course: 65-year-old male presents the emergency department for evaluation of GI bleeding. He has had 3 episodes of bloody stools this morning/afternoon. He ultimately presented to Dr. Enriquez's office. In discussion with Dr. Enriquez she reports that she was scheduling him for an outpatient EGD and colonoscopy for . However she did tell him that if he had worsening symptoms to go to the emergency department. The MA at the clinic told the patient to come to the emergency department misunderstanding Dr. Enriquez's instructions therefore he presents now. Screening labs show a very healthy hemoglobin of 14. No thrombocytopenia or electrolyte abnormalities. A CT of the abdomen with contrast does not reveal the etiology of the bleeding. I briefly discussed this case with on-call surgeon Dr. Call. Patient is free of abdominal pain. He has normal vital signs without tachycardia and his hemoglobin is stable. At this time he feels the patient is appropriate to be discharged from the emergency department to continue to follow-up with outpatient endoscopy and colonoscopy for . Patient is advised to have a clear liquid diet starting now. Dr. Call will contact the primary care office in order to have the prep ordered. Emergent return precautions were discussed. Departure - Departure Disposition: Home, Self Care Clinical Impression: GI bleed Qualifiers: GI bleed type/associated pathology: unspecified gastrointestinal hemorrhage type Qualified Code(s): K92.2 - Gastrointestinal hemorrhage, unspecified Condition: Stable Record reviewed to determine appropriate education?: Yes Follow-Up: Selene Enriquez MD [Provider Admit Priv/Credential] - Comments: Robin you were seen in the emergency department today for bloody stools. Your labs today are essentially normal. The CT of your abdomen did not show an obvious cause or reason for the bleeding. Dr. Lindsay will likely proceed with the EGD and colonoscopy on . From this point forward you are to have a clear liquid diet only. This is essentially liquids that you can see through such as broth water Gatorade or juice. Please call Dr. Lindsay's office in the morning. They will order the appropriate bowel prep in order for you to have the screenings on . If at any point you have severe rectal bleeding, have a resting heart rate greater than 120, have any fainting episodes or feel that your symptoms are significantly worse then please return to the ER.
[2020-10-23] MEDS ORDERED: IOVERSOL 320 100 ML VIAL IVP ONE ×2 (17:45→18:11)
--- NOTE | 2020-10-23 18:21 | CT Report ---
PROCEDURE: Abdomen/Pelvis W INDICATIONS: Possible upper GI bleed. CONTRAST: IV CONTRAST: Optiray 320 ml: 100 PO CONTRAST: *NO PO CONTRAST TECHNIQUE: After the administration of contrast, 5 mm thick sections acquired from the diaphragms to the sym physis. 5 mm thick coronal and sagittal reformats were acquired. For radiation dose reduction, the following was used: automated exposure control, adjustment of mA and/or kV according to patient size . COMPARISON: None. FINDINGS: Image quality: Excellent. ABDOMEN: Lung bases: Lung bases are clear. Heart size is normal. Solid organs: Liver and spleen are normal in size and enhancement. Gallbladder appears normal, cont racted Biliary system is non dilated. Pancreas enhances normally. No adrenal nodules. Kidneys dem onstrate normal size and enhancement, without hydronephrosis. Note is again made of multiple peripel diallo cysts bilaterally symmetric, as has been previously the case. Peritoneum and bowel: Bowel loops demonstrate normal wall thickness and caliber. No free fluid or a ir. Nodes and vessels: No retroperitoneal or mesenteric adenopathy by size criteria. Aorta and inferior vena cava are normal in size. Miscellaneous: No ventral hernias. PELVIS: Genitourinary: Bladder wall thickness is normal. Miscellaneous: No inguinal hernias or adenopathy. Bones: No suspicious bony lesions. No vertebral body compression fractures. IMPRESSION: A source of upper GI bleeding is not found. Note is again made of bilateral peripelvic r enal cysts, previously documented. No solid mass or complex cyst is found. Through the abdomen and pe lvis no underlying infection or neoplasm is suspected. Reviewed by: Jhony Ngo MD on 10/23/2020 5:20 PM [place] Approved by: Jhony Ngo MD on 10/23/2020 5:20 PM AKST Station ID: [id number]
[2020-10-23 19:09] VITALS: BP 104/89
== END 2020-10-23 19:16 | disposition home or self-care (01) ==
LOC: ED 16:35
DX: K92.1 Melena (principal); R10.13 Epigastric pain; N28.1 Cyst of kidney, acquired
CPT/HCPCS: 36415; 74177; 80053; 83690; 84484; 85025; 85610; 93005; 99284; Q9967

== ENCOUNTER 2020-10-30 17:36 | Outpatient (CLI) | payer BC | END 2020-10-30 17:37 | disposition home or self-care (01) | LOC: COV 17:36 | PROVIDERS: ATTEND Surgery | DX: Z01.812 Encounter for preprocedural laboratory examination (principal); K92.2 Gastrointestinal hemorrhage, unspecified; Z20.822 Contact with and (suspected) exposure to COVID-19 ==

== ENCOUNTER 2020-11-02 06:13 | Day surgery (SDC) | payer BC ==
[2020-11-02] MEDS ORDERED: LACTATED RINGERS 1,000 ML IV ONE ×2 (06:50→08:41)
[2020-11-02] MEDS ORDERED: LIDO GARGLE 30 ML BOTTLE ONE (07:20)
[2020-11-02] MEDS ORDERED: BENZOCAINE/TETRACAINE/BUTAMBEN 20 GM TOP ONE (07:57)
[2020-11-02] MEDS ORDERED: LIDO GARGLE 30 ML BOTTLE PO ONE (07:57)
[2020-11-02] MEDS ORDERED: MIDAZOLAM 2 MG/2 ML VIAL ONE ×3 (07:59→08:34)
[2020-11-02] MEDS ORDERED: fentaNYL 250 MCG/5 ML VIAL ONE (07:59)
[2020-11-02] MEDS ORDERED: ONDANSETRON 4 MG/2 ML VIAL ONE (08:18)
[2020-11-02 09:04] VITALS: BP 104/82
== END 2020-11-02 06:14 | disposition home or self-care (01) ==
LOC: SDS 06:13
PROVIDERS: ATTEND Surgery
PROC: 0DB78ZX Excision of Stomach, Pylorus, Via Natural or Artificial Opening Endoscopic, Diagnostic (ICD-10-PCS; 2020-11-02)
PROC: 0DB48ZX Excision of Esophagogastric Junction, Via Natural or Artificial Opening Endoscopic, Diagnostic (ICD-10-PCS; 2020-11-02)
PROC: 0DB38ZX Excision of Lower Esophagus, Via Natural or Artificial Opening Endoscopic, Diagnostic (ICD-10-PCS; 2020-11-02)
PROC: 0DBP8ZZ Excision of Rectum, Via Natural or Artificial Opening Endoscopic (ICD-10-PCS; principal; 2020-11-02 07:30)
PROC: 0DB98ZX Excision of Duodenum, Via Natural or Artificial Opening Endoscopic, Diagnostic (ICD-10-PCS; 2020-11-02 07:30)
DX: K62.5 Hemorrhage of anus and rectum (principal); K21.9 Gastro-esophageal reflux disease without esophagitis; R10.9 Unspecified abdominal pain; K44.9 Diaphragmatic hernia without obstruction or gangrene; K29.70 Gastritis, unspecified, without bleeding; K62.1 Rectal polyp; K64.8 Other hemorrhoids; E03.9 Hypothyroidism, unspecified; K29.80 Duodenitis without bleeding; D62 Acute posthemorrhagic anemia; R11.0 Nausea
CPT/HCPCS: 43239; 43250; 45384; A9270; J3010; J7120

== ENCOUNTER 2020-12-27 07:03 | Outpatient (CLI) | payer BC ==
[2020-12-27 14:44] LABS: BASOPHILS % (AUTO) 0.5 %; EOSINOPHILS # (AUTO) 0.1 10^3/uL (0.0-0.7); EOSINOPHILS % (AUTO) 1.3 %; HCT - HEMATOCRIT 45.3 % (42.0-52.0); HGB - HEMOGLOBIN 14.7 g/dL (14.0-18.0); LYMPHOCYTES # (AUTO) 1.3 10^3/uL (1.5-3.5); LYMPHOCYTES % (AUTO) 34.8 %; MEAN CORPUSCULAR HEMOGLOBIN 31.9 pg (27.0-31.0); MEAN CORPUSCULAR HGB CONC 32.5 g/dL (32.0-36.0); MEAN CORPUSCULAR VOLUME 98.3 fL (80.0-94.0); MONOCYTES # (AUTO) 0.5 10^3/uL (0.0-1.0); MONOCYTES % (AUTO) 12.4 %; NEUTROPHILS # (AUTO) 1.9 10^3/uL (1.5-6.6); NEUTROPHILS % (AUTO) 50.7 %; PLT - PLATELET COUNT 216 10^3/uL (130-450); RED BLOOD COUNT 4.61 10^6/uL (4.70-6.10); RED CELL DISTRIBUTION WIDTH 13.1 % (12.0-15.0); WHITE BLOOD COUNT 3.7 x10^3/uL (4.8-10.8)
[2020-12-27 14:51] LABS: ALBUMIN 4.1 g/dL (3.2-5.5); ALBUMIN/GLOBULIN RATIO 1.6 (1.0-2.2); ALKALINE PHOSPHATASE 34 IU/L (42-121); ALT ALANINE AMINOTRANSFERASE 22 IU/L (10-60); AST ASPARTATE AMINOTRANSFERASE 19 IU/L (10-42); BILIRUBIN,TOTAL 0.8 mg/dL (0.2-1.0); BUN - BLOOD UREA NITROGEN 26 mg/dL (6-20); CALCIUM 9.2 mg/dL (8.5-10.3); CARBON DIOXIDE - CO2 29 mmol/L (21-32); CHLORIDE 105 mmol/L (101-111); CHOL/HDL RATIO 3.8 (<5.0); CHOLESTEROL 207 mg/dL; CREATININE 0.9 mg/dL (0.6-1.2); GFR - MDRD 85 (>89); GLUCOSE 104 mg/dL (70-100); HDL CHOLESTEROL 54 mg/dL; LDL CHOLESTEROL,CALCULATED 127 mg/dL; LDL/HDL RATIO 2.4 (<3.6); SODIUM 140 mmol/L (135-145); TOTAL PROTEIN 6.7 g/dL (6.7-8.2); TRIGLYCERIDES 128 mg/dL; VLDL CHOLESTEROL 26 mg/dL
[2020-12-27 15:02] LABS: THYROID STIMULATING HORMONE 0.52 uIU/mL (0.34-5.60)
== END 2020-12-27 07:04 | disposition home or self-care (01) ==
LOC: LAB.S 07:03
PROVIDERS: ATTEND Internal Medicine
DX: Z00.00 Encounter for general adult medical examination without abnormal findings (principal); R10.9 Unspecified abdominal pain; Z83.2 Family history of diseases of the blood and blood-forming organs and certain disorders involving the immune mechanism; Z12.5 Encounter for screening for malignant neoplasm of prostate; K76.9 Liver disease, unspecified; E03.9 Hypothyroidism, unspecified
CPT/HCPCS: 36415; 80053; 80061; 82728; 83721; 84153; 84443; 85025

== ENCOUNTER 2021-03-03 08:18 | Outpatient (CLI) | payer BC ==
--- NOTE | 2021-03-03 10:02 | Ultrasound Report ---
PROCEDURE: Abdomen Complete INDICATIONS: EPIGASTRIC PAIN TECHNIQUE: Real-time scanning was performed of the abdominal and retroperitoneal organs, with image documentatio n. COMPARISON: 07/02/2020 FINDINGS: Liver: Small echogenic focus in the right hepatic lobe measures 0.9 x 1.5 cm, probable hemangioma. Gallbladder: Small gallbladder polyp measures 3 mm, similar prior exam. No gallbladder wall thickenin g or pericholecystic fluid. Biliary ducts: Intrahepatic bile ducts are non-dilated. Extrahepatic bile duct caliber measures 4 m m. Normal is 6-7 mm or less in diameter, or 10 mm or less post-cholecystectomy. Pancreas: Nonvisualized due to overlying bowel gas Spleen: Spleen is normal in size and homogeneous in echotexture. Kidneys: Kidneys are normal in size and echotexture. Right kidney measures 11.6 cm long; left kidne y measures 15 cm long. No hydronephrosis or nephrolithiasis. No solid masses. Bilateral peripelvic cysts again noted, left greater than right. Aorta: The aorta smoothly tapers without evidence of aneurysm. Proximal aortic diameter is upper limi ts of normal [place]: Proximal common iliac arteries are normal in caliber at less than 2.5 cm. IVC: Intrahepatic inferior vena cava is patent. Miscellaneous: No free abdominal fluid. IMPRESSION: Stable gallbladder polyp, unchanged. Small hepatic echogenic focus right hepatic lobe, probable hepatic hemangioma No stable bilateral renal peripelvic cysts. No hydronephrosis. Reviewed by: Javon Betts MD on 03/03/2021 9:00 AM [place] Approved by: Javon Betts MD on 03/03/2021 9:00 AM [place]COE Station ID: [id number]
== END 2021-03-03 08:19 | disposition home or self-care (01) ==
LOC: DI 08:18
PROVIDERS: ATTEND Internal Medicine
DX: R10.13 Epigastric pain (principal); K82.4 Cholesterolosis of gallbladder

== ENCOUNTER 2021-03-25 08:00 | Outpatient (CLI) | payer BC ==
--- NOTE | 2021-03-25 17:05 | XRAY Report ---
PROCEDURE: Hand 3 View LT INDICATIONS: CONTUSION OF LEFT HAND TECHNIQUE: 3 views of the hand(s) acquired. COMPARISON: None FINDINGS: Bones: Small ossification noted adjacent to the lateral margin of the base of the second metatarsal. No suspicious bony lesions. Soft tissues: No suspicious soft tissue calcifications. IMPRESSION: Small ossification adjacent to the base of the second metatarsal may represent superimposition of sha dows versus incompletely visualized avulsion fracture. Recommend correlation for point tenderness. If there is clinical concern for second metatarsal base avulsion injury CT scan or MRI should be consid ered for further evaluation. Reviewed by: Lynnette Rossi MD, PhD on 03/25/2021 5:03 PM PDT Approved by: Lynnette Rossi MD, PhD on 03/25/2021 5:03 PM PDT Station ID: [id number]
== END 2021-03-25 23:59 | disposition home or self-care (01) ==
LOC: DI.S 08:00
PROVIDERS: ATTEND Emergency Medicine
DX: S60.222A Contusion of left hand, initial encounter (principal); R93.6 Abnormal findings on diagnostic imaging of limbs

== ENCOUNTER 2021-04-03 07:10 | Outpatient (CLI) | payer BC ==
[2021-04-03 15:13] LABS: THYROID STIMULATING HORMONE 2.51 uIU/mL (0.34-5.60)
[2021-04-05 09:27] LABS: IMMUNOGLOBULIN A 157 mg/dL (70-320); IMMUNOGLOBULIN G 895 mg/dL (600-1540); IMMUNOGLOBULIN M 38 mg/dL (50-300)
== END 2021-04-03 07:11 | disposition home or self-care (01) ==
LOC: LAB.S 07:10
PROVIDERS: ATTEND Internal Medicine
DX: D72.819 Decreased white blood cell count, unspecified (principal); E03.9 Hypothyroidism, unspecified
CPT/HCPCS: 36415; 82784; 84443

== ENCOUNTER 2022-01-25 00:18 | Outpatient (CLI) | payer BC | END 2022-01-25 23:59 | disposition critical access hospital (66) | LOC: EMS 00:18 | DX: I49.9 Cardiac arrhythmia, unspecified (principal); R07.9 Chest pain, unspecified | CPT/HCPCS: A0425; A0427 ==

== ENCOUNTER 2022-01-25 00:59 | Emergency (ER) | payer BC ==
[2022-01-25] MEDS ORDERED: NITROGLYCERIN SL 0.4 MG TABLET SL STA (01:13)
[2022-01-25] MEDS ORDERED: ONDANSETRON 4 MG/2 ML VIAL IVP STA (01:13)
--- NOTE | 2022-01-25 01:13 | ED Physician Documentation ---
PD HPI CHEST PAIN - Stated complaint Stated Complaint: DIZZY, CP - History obtained from History obtained from: Patient, EMS - History of Present Illness Timing - onset: Enter time (23:00), Today, Other (other symptoms during day, see narrative below) Timing - onset during: Rest Timing - details: Gradual onset Pain level max: 3 Pain level now: 0 Quality: Tightness Radiation: Back Improved by: Nothing Worsened by: Other (no exacerbating factors) Associated symptoms: Feeling faint / dizzy, Palpitations Similar symptoms before: Has not had sx before Recently seen: Not recently seen - Additional information Additional information: c/o dizziness and "chest discomfort" (per patient) during most of the day today. He has also had occasional "skipped beat" palpitations since 1 PM. He called 911 when he had worsening chest tightness at approximately 11 PM tonight while sitting up awake in bed. EMS note PACs en route. EMS reports that patient had three episodes of 190s heart rate associated with sudden increase in his chest pain but episodes only lasted a few seconds and they were not able to obtain / print rhythm strip/twelve-lead for any of these brief events. He has received 250ml NS en route and [place] oxygen (2 L/min) placed. Patient has taken 81 mg ASA x 4 tonight. Review of Systems Constitutional: reports: Reviewed and negative Cardiac: reports: Chest pain / pressure, Palpitations. denies: Pedal edema, Calf pain Respiratory: reports: Reviewed and negative GI: reports: Reviewed and negative Musculoskeletal: denies: Extremity swelling Neurologic: reports: Reviewed and negative PD PAST MEDICAL HISTORY - Past Medical History Cardiovascular: None, Other Respiratory: None Neuro: None Endocrine/Autoimmune: HyPOthyroidism GI: GERD : None HEENT: None Psych: Anxiety, Claustrophobia Musculoskeletal: None Derm: None - Past Surgical History Past Surgical History: Yes General: Colonoscopy, EGD, Other - Present Medications Home Medications: Ambulatory Orders Medication Instructions Recorded Confirmed Levothyroxine Sodium [Levo-T] 112 mcg PO QDAC 06/12/17 08/05/21 Famotidine [Pepcid AC] 80 mg PO DAILY 10/23/20 08/05/21 - Allergies Allergies/Adverse Reactions: Allergies Allergy/AdvReac Type Severity Reaction Status Date / Time amoxicillin Allergy Rash Verified 01/25/22 01:25 tetracycline Allergy Hives Verified 01/25/22 01:25 Penicillins AdvReac Respiratory Verified 01/25/22 01:25 - Social History Does the pt smoke?: No Smoking Status: Never smoker Does the pt drink ETOH?: No Does the pt have substance abuse?: Yes - Immunizations Immunizations are current?: Yes - POLST Patient has POLST: No POLST Status: Full Code PD ED PE NORMAL - Vitals Vital signs reviewed: Yes - General General: Alert and oriented X 3, No acute distress, Well developed/nourished - Neck Neck: Supple, no meningeal sign - Cardiac Cardiac: RRR, No murmur, No gallop, No rub - Respiratory Respiratory: No respiratory distress, Clear bilaterally - Abdomen Abdomen: Soft, Non tender - Derm Derm: Normal color, Warm and dry - Extremities Extremities: No edema - Neuro Neuro: Alert and oriented X 3 Results - Vitals Vitals: Oxygen O2 Source Room air - EKG (time done) No standard instances Rate: Rate (enter#) (71) Rhythm: NSR [place]: Normal Intervals: Normal [place] QRS: Normal Ischemia: Normal ST segments Other comments: Other comments (PVC) - Labs Labs: Laboratory Tests 01/25/22 01/25/22 01/25/22 01:12 01:12 01:12 WBC 6.4 RBC 4.60 L Hgb 14.9 Hct 43.5 MCV 94.6 H MCH 32.4 H MCHC 34.3 RDW 12.1 Plt Count 214 MPV 9.6 Neut # (Auto) 3.7 Lymph # (Auto) 1.9 [place] # (Auto) 0.7 Eos # (Auto) 0.1 Baso # (Auto) 0.0 Absolute Nucleated RBC 0.00 Nucleated RBC % 0.0 Sodium 140 Potassium 3.7 Chloride 106 Carbon Dioxide 25 Anion Gap 9.0 BUN 21 H Creatinine 1.0 Estimated GFR (MDRD) 75 L Glucose 110 H Calcium 9.1 Total Bilirubin 0.4 AST 22 ALT 22 Alkaline Phosphatase 32 L Troponin I High Sens 5.2 Total Protein 6.8 Albumin 4.0 Globulin 2.8 Albumin/Globulin Ratio 1.4 Lipase 34 - Rads (name of study) chest xray Radiology: Prelim report reviewed, See rad report PD MEDICAL DECISION MAKING - ED course Complexity details: reviewed results, re-evaluated patient, considered differential, d/w patient ED course: Given SLNTG without temporal improvement. Also given IV NS, zofran for nausea, and later in stay he is given IV lorazepam for anxiety. No concerning findings on EKG, CXR, CBC, ER abdominal panel (BUN/Creatinine ratio c/w mild dehydration), and he has a normal hs-cTn. He was mostly NSR during ED stay on telemetry, with periods of PACs and some stretches of atrial bigeminy (I was in the room for one of the episodes of atrial bigeminy and he told me at that time he was not feeling any symptoms). As test results became available, I was talking to patient and he began to hyperventilate. I palpated his right radial pulse while looking at the monitor; his vital signs were stable and he had HR 90s to low 100s and strong correlating right radial pulse. He very rapidly became increasingly short of breath and then had syncopal episode with LOC lasting approximately 10-15 seconds. This was not enough time for the BP cuff to recycle, but notably his right radial pulse did not diminish from it's strong and correlating beat, patient did not become noticeably pale, and his respiratory rate remained WNL. There was no seizure activity and, after approximately 10-15 seconds, he had a rapid, almost instantaneous, return to baseline mental status and was no longer in any respiratory distress. The cause of this syncopal episode is not apparent , but there was no dysrhythmia, he maintained palpable right radial pulse and color (vagal episode would seem unlikely without bradycardia and loss of, or diminishing of, the radial pulse), and rapid return to baseline would be inconsistent with ICH, PE. He is observed in ED for over five hours. After the syncopal episode, he is given low-dose IV lorazepam for possible anxiety component (I explained to him that his symptoms are not being attributed solely to anxiety, but a component of anxiety is suspected. I similarly explained that the diagnosis of hyperventilation simply means breathing too rapidly, which can be caused by anxiety as well as many other diagnoses, some serious). Subsequent to receiving the lorazepam, he slept comfortably and was in NAD on repeated reevaluations with stable vital signs on the monitor. His PACs and atrial bigeminy episodes decreased in proportion to how awake he was. Prior to d/c, we again reviewed results and I encouraged him to return if worse in any way. I instructed him to follow up with his primary care provider. Departure - Departure Disposition: 01 Home, Self Care Clinical Impression: Hyperventilation, Atrial arrhythmia Chest pain Qualifiers: Chest pain type: unspecified Qualified Code(s): R07.9 - Chest pain, unspecified Condition: Good Instructions: ED Chest Pain Atypical Unkn Cause Follow-Up: Haseeb Driver MD [Primary Care Provider] - Comments: The results of the tests performed tonight are unremarkable. At this time, the cause of your symptoms is not apparent. During your stay in the ER, some skipped beats were noted on the monitor but you did not have any cardiac rhythms during ER observation that were dangerous or concerning. EMS noted brief periods of heart rates as high as 190, but unfortunately these episodes resolved before they were able to capture a recording of what rhythm you were having at that time. You need to follow up with your primary care provider even if you do not have more symptoms; further testing might be necessary but is at the discretion of your primary care provider. Discharge Date/Time: 01/25/22 06:28
[2022-01-25] MEDS ORDERED: SODIUM CHLORIDE 0.9% 500 ML IV STA (01:17)
[2022-01-25] MEDS ORDERED: LORazepam 2 MG/ML VIAL IVP STA (01:20)
[2022-01-25 01:22] LABS: BASOPHILS % (AUTO) 0.3 %; EOSINOPHILS # (AUTO) 0.1 10^3/uL (0.0-0.7); EOSINOPHILS % (AUTO) 0.9 %; HCT - HEMATOCRIT 43.5 % (42.0-52.0); HGB - HEMOGLOBIN 14.9 g/dL (14.0-18.0); LYMPHOCYTES # (AUTO) 1.9 10^3/uL (1.5-3.5); LYMPHOCYTES % (AUTO) 30.3 %; MEAN CORPUSCULAR HEMOGLOBIN 32.4 pg (27.0-31.0); MEAN CORPUSCULAR HGB CONC 34.3 g/dL (32.0-36.0); MEAN CORPUSCULAR VOLUME 94.6 fL (80.0-94.0); MEAN PLATELET VOLUME 9.6 fL (7.4-11.4); MONOCYTES # (AUTO) 0.7 10^3/uL (0.0-1.0); MONOCYTES % (AUTO) 10.7 %; NEUTROPHILS # (AUTO) 3.7 10^3/uL (1.5-6.6); NEUTROPHILS % (AUTO) 57.5 %; PLT - PLATELET COUNT 214 10^3/uL (130-450); RED CELL DISTRIBUTION WIDTH 12.1 % (12.0-15.0); WHITE BLOOD COUNT 6.4 x10^3/uL (4.8-10.8)
[2022-01-25 01:41] LABS: ALBUMIN/GLOBULIN RATIO 1.4 (1.0-2.2); BILIRUBIN,TOTAL 0.4 mg/dL (0.2-1.0); CALCIUM 9.1 mg/dL (8.5-10.3); POTASSIUM 3.7 mmol/L (3.5-5.0); TOTAL PROTEIN 6.8 g/dL (6.7-8.2)
--- NOTE | 2022-01-25 02:03 | XRAY Report ---
PROCEDURE: Chest 1 View X-Ray INDICATIONS: chest pain TECHNIQUE: One view of the chest was acquired. COMPARISON: 07/02/20 FINDINGS: Surgical changes and devices: None. Lungs and pleura: There are low lung volumes. Associated pulmonary vascular prominence may represent vascular crowding or mild edema. No pleural effusions or pneumothorax. Mediastinum: Mediastinal contours appear normal. Heart size is normal. Bones and chest wall: No suspicious bony lesions. Overlying soft tissues appear unremarkable. IMPRESSION: 1. Pulmonary vascular prominence consistent with mild edema or vascular crowding Reviewed by: Adama Larkin MD on 01/25/2022 2:01 AM PDT Approved by: Adama Larkin MD on 01/25/2022 2:01 AM PDT Station ID: [id number]
[2022-01-25 06:19] VITALS: BP 95/73
== END 2022-01-25 06:28 | disposition home or self-care (01) ==
LOC: EDUNIT# → ED 00:59
DX: R07.9 Chest pain, unspecified (principal); R06.4 Hyperventilation; I49.8 Other specified cardiac arrhythmias
CPT/HCPCS: 36415; 71045; 80053; 83690; 84484; 85025; 93005; 96374; 96375; 99284; J2060

== ENCOUNTER 2022-02-05 07:01 | Outpatient (CLI) | payer BC ==
[2022-02-05 15:06] LABS: CALCIUM 9.1 mg/dL (8.5-10.3); MAGNESIUM 2.2 mg/dL (1.7-2.8); POTASSIUM 4.2 mmol/L (3.5-5.0)
== END 2022-02-05 07:02 | disposition home or self-care (01) ==
LOC: LAB.S 07:01
PROVIDERS: ATTEND Emergency Medicine
DX: I49.3 Ventricular premature depolarization (principal)
CPT/HCPCS: 36415; 80048; 83735

== ENCOUNTER 2022-02-06 09:44 | Outpatient (CLI) | payer BC | END 2022-02-06 09:45 | disposition left against medical advice (07) | LOC: EMS 09:44 | DX: R00.2 Palpitations (principal); R06.02 Shortness of breath; R53.1 Weakness ==

== ENCOUNTER 2022-03-04 09:35 | Outpatient (CLI) | payer BC ==
[2022-03-04 15:18] LABS: CHOL/HDL RATIO 3.5 (<5.0); CHOLESTEROL 215 mg/dL; HDL CHOLESTEROL 61 mg/dL; LDL CHOLESTEROL,CALCULATED 139 mg/dL; LDL/HDL RATIO 2.3 (<3.6); TRIGLYCERIDES 76 mg/dL; VLDL CHOLESTEROL 15 mg/dL
== END 2022-03-04 09:36 | disposition home or self-care (01) ==
LOC: LAB.S 09:35
PROVIDERS: ATTEND Internal Medicine Cardiovascular Disease
DX: Z82.49 Family history of ischemic heart disease and other diseases of the circulatory system (principal)
CPT/HCPCS: 36415; 80061; 83721

== ENCOUNTER 2022-04-16 10:20 | Outpatient (CLI) | payer BC ==
[2022-04-16 14:35] LABS: THYROID STIMULATING HORMONE 0.11 uIU/mL (0.34-5.60)
[2022-04-16 15:06] LABS: FREE T4 (FREE THYROXINE) 1.24 ng/dL (0.58-1.64)
== END 2022-04-16 10:21 | disposition home or self-care (01) ==
LOC: LAB.S 10:20
PROVIDERS: ATTEND Registered Nurse
DX: Z12.5 Encounter for screening for malignant neoplasm of prostate (principal); E03.9 Hypothyroidism, unspecified
CPT/HCPCS: 36415; 84153; 84439; 84443

== ENCOUNTER 2022-06-29 11:04 | Outpatient (CLI) | payer BC | END 2022-06-29 23:59 | disposition critical access hospital (66) | LOC: EMS 11:04 | DX: R00.2 Palpitations (principal) | CPT/HCPCS: A0425; A0429 ==

== ENCOUNTER 2022-06-29 11:41 | Emergency (ER) | payer BC ==
[2022-06-29] MEDS ORDERED: SODIUM CHLORIDE 0.9% 1,000 ML IV STA (12:19)
[2022-06-29 12:34] LABS: BASOPHILS % (AUTO) 0.4 %; EOSINOPHILS % (AUTO) 0.6 %; HCT - HEMATOCRIT 42.6 % (42.0-52.0); HGB - HEMOGLOBIN 14.3 g/dL (14.0-18.0); LYMPHOCYTES # (AUTO) 0.8 10^3/uL (1.5-3.5); LYMPHOCYTES % (AUTO) 15.9 %; MEAN CORPUSCULAR HGB CONC 33.6 g/dL (32.0-36.0); MEAN CORPUSCULAR VOLUME 95.3 fL (80.0-94.0); MEAN PLATELET VOLUME 9.2 fL (7.4-11.4); MONOCYTES # (AUTO) 0.4 10^3/uL (0.0-1.0); MONOCYTES % (AUTO) 7.4 %; NEUTROPHILS # (AUTO) 3.9 10^3/uL (1.5-6.6); NEUTROPHILS % (AUTO) 75.3 %; PLT - PLATELET COUNT 217 10^3/uL (130-450); RED BLOOD COUNT 4.47 10^6/uL (4.70-6.10); RED CELL DISTRIBUTION WIDTH 13.6 % (12.0-15.0); WHITE BLOOD COUNT 5.2 x10^3/uL (4.8-10.8)
--- NOTE | 2022-06-29 12:54 | XRAY Report ---
PROCEDURE: Chest 1 View X-Ray INDICATIONS: palpitations TECHNIQUE: One view of the chest was acquired. COMPARISON: 01/25/2022 FINDINGS: Surgical changes and devices: None. Lungs and pleura: No pleural effusions or pneumothorax. Lungs are clear. Mediastinum: Mediastinal contours appear normal. Heart size is normal. Bones and chest wall: No suspicious bony lesions. Age-appropriate degenerative changes are seen. O verlying soft tissues appear unremarkable. IMPRESSION: No significant portable chest abnormality is seen for age. Reviewed by: Costa Oleary MD on 06/29/2022 11:52 AM [facility] Approved by: Costa Oleary MD on 06/29/2022 11:52 AM [facility] Station ID: [id number]
[2022-06-29 12:56] LABS: ALBUMIN/GLOBULIN RATIO 1.5 (1.0-2.2); BILIRUBIN,TOTAL 0.9 mg/dL (0.2-1.0); CALCIUM 8.7 mg/dL (8.5-10.3); MAGNESIUM 2.2 mg/dL (1.7-2.8); POTASSIUM 3.9 mmol/L (3.5-5.0); TOTAL PROTEIN 6.6 g/dL (6.7-8.2)
--- NOTE | 2022-06-29 14:18 | ED Physician Documentation ---
PD HPI CHEST PAIN - Stated complaint Stated Complaint: PALPATATIONS - Chief complaint Chief Complaint: Cardiac - History obtained from History obtained from: Patient - Additional information Additional information: Patient is a 66-year-old male presenting for evaluation of palpitations that started Earlier this morning as he was helping a friend. He reports feeling his heart racing. A friend that was also present had [employer] heart monitor that was reading his heart rate in the 115 range. Patient reports feeling mild chest discomfort at the time patient reports that his symptoms are feeling better. He is not been taking his thyroid medication for the last week as he was feeling nauseous. He denies having current difficulty breathing, abdominal pain, neck or back pain. Review of Systems Constitutional: denies: Fever Nose: denies: Congestion Cardiac: reports: Chest pain / pressure, Palpitations Respiratory: denies: Dyspnea GI: denies: Abdominal Pain : denies: Dysuria Neurologic: denies: Headache PD PAST MEDICAL HISTORY - Past Medical History Cardiovascular: None, Other Respiratory: None Neuro: None Endocrine/Autoimmune: HyPOthyroidism GI: GERD : None HEENT: None Psych: Anxiety, Claustrophobia Musculoskeletal: None Derm: None - Past Surgical History Past Surgical History: Yes General: Colonoscopy, EGD, Other - Present Medications Home Medications: Ambulatory Orders Medication Instructions Recorded Confirmed Levothyroxine Sodium [Levo-T] 112 mcg PO QDAC 06/12/17 06/29/22 - Allergies Allergies/Adverse Reactions: Allergies Allergy/AdvReac Type Severity Reaction Status Date / Time amoxicillin Allergy Rash Verified 06/29/22 11:56 tetracycline Allergy Hives Verified 06/29/22 11:56 Penicillins AdvReac Respiratory Verified 06/29/22 11:56 - Social History Does the pt smoke?: No Smoking Status: Never smoker Does the pt drink ETOH?: No Does the pt have substance abuse?: Yes - Immunizations Immunizations are current?: Yes - POLST Patient has POLST: No POLST Status: Full Code PD ED PE NORMAL - General General: Alert and oriented X 3, No acute distress, Well developed/nourished - HEENT HEENT: Atraumatic, Moist mucous membranes - Neck Neck: Supple, no meningeal sign - Cardiac Cardiac: RRR, Strong equal pulses - Respiratory Respiratory: No respiratory distress, Clear bilaterally - Abdomen Abdomen: Soft, Non tender - Derm Derm: Warm and dry - Extremities Extremities: No edema, No calf tenderness / cord - Neuro Neuro: Normal speech Results - Vitals Vitals: Vital Signs - 24 hr 06/29/22 06/29/22 06/29/22 11:52 13:00 13:30 Temperature 37.1 C Heart Rate 67 61 59 L Respiratory 16 11 L 16 Rate Blood Pressure 118/90 H 106/85 H 109/82 H O2 Saturation 95 97 94 06/29/22 14:00 Temperature 37.3 C Heart Rate 58 L Respiratory 23 Rate Blood Pressure 112/80 O2 Saturation 95 Oxygen O2 Source Room air - EKG (time done) 1151 Rate: Rate (enter#) (70) Rhythm: NSR [place]: Normal Ischemia: No: ST elevation c/w ischemia - Labs Labs: Laboratory Tests 06/29/22 06/29/22 06/29/22 12:26 12:26 12:26 WBC 5.2 RBC 4.47 L Hgb 14.3 Hct 42.6 MCV 95.3 H MCH 32.0 H MCHC 33.6 RDW 13.6 Plt Count 217 MPV 9.2 Neut # (Auto) 3.9 Lymph # (Auto) 0.8 L [place] # (Auto) 0.4 Eos # (Auto) 0.0 Baso # (Auto) 0.0 Absolute Nucleated RBC 0.00 Nucleated RBC % 0.0 Sodium 136 Potassium 3.9 Chloride 107 Carbon Dioxide 22 Anion Gap 7.0 BUN 23 H Creatinine 1.0 Estimated GFR (MDRD) 75 L Glucose 101 H Calcium 8.7 Magnesium 2.2 Total Bilirubin 0.9 AST 26 ALT 30 Alkaline Phosphatase 33 L Troponin I High Sens Total Protein 6.6 L Albumin 4.0 Globulin 2.6 Albumin/Globulin Ratio 1.5 Lipase 30 TSH 60.16 H Free T4 06/29/22 06/29/22 12:26 12:26 WBC RBC Hgb Hct MCV MCH MCHC RDW Plt Count MPV Neut # (Auto) Lymph # (Auto) [place] # (Auto) Eos # (Auto) Baso # (Auto) Absolute Nucleated RBC Nucleated RBC % Sodium Potassium Chloride Carbon Dioxide Anion Gap BUN Creatinine Estimated GFR (MDRD) Glucose Calcium Magnesium Total Bilirubin AST ALT Alkaline Phosphatase Troponin I High Sens 2.9 Total Protein Albumin Globulin Albumin/Globulin Ratio Lipase TSH Free T4 0.33 L PD MEDICAL DECISION MAKING - ED course Complexity details: reviewed results, re-evaluated patient, d/w patient ED course: Patient presenting for evaluation of palpitations that started earlier today with brief episode of chest pain that was nonradiating. Patient is feeling better. Symptoms are atypical for ACS. His EKG demonstrates a sinus rhythm without signs of acute ischemia. His high-sensitivity troponin is negative.His TSH is abnormal and patient admits that he has not been to using his thyroid medication for the past week. I did advise the patient should resume his thyroid medication and have close follow-up with his PCP. Patient was counseled on concerning symptoms to return for. Departure - Departure Disposition: Home, Self Care Clinical Impression: Palpitations, Hypothyroid Condition: Stable Instructions: ED Palpitations Comments: You were evaluated for palpitations and chest pain. Your labs are reassuring other than your thyroid level. Your TSH is high. I have sent off for a free T4 level which will measure the actual amount of hormone in your body. However you have not been taking your thyroid medication for the past week which is why it may be abnormal. I would recommend follow-up with your primary care doctor this week regarding your palpitations as well as your thyroid testing. You may need further monitoring such as a heart monitor to determine if you are having any irregular rhythms although we have not detected any today. If you have any worsening symptoms please return to the ER. Discharge Date/Time: 06/29/22 14:23
[2022-06-29 14:20] VITALS: BP 112/80
== END 2022-06-29 14:23 | disposition home or self-care (01) ==
LOC: EDUNIT# → ED 11:41
DX: R00.2 Palpitations (principal); E03.9 Hypothyroidism, unspecified
CPT/HCPCS: 36415; 80053; 83690; 83735; 84439; 84443; 84484; 85025; 93005; 96360; 99284

== ENCOUNTER 2022-07-27 08:08 | Emergency (ER) | payer BC ==
[2022-07-27] MEDS ORDERED: iohexoL-300 100 ML VIAL ONE (08:18)
[2022-07-27 08:32] LABS: BASOPHILS % (AUTO) 0.4 %; EOSINOPHILS % (AUTO) 0.8 %; HCT - HEMATOCRIT 43.9 % (42.0-52.0); HGB - HEMOGLOBIN 14.7 g/dL (14.0-18.0); LYMPHOCYTES # (AUTO) 1.1 10^3/uL (1.5-3.5); LYMPHOCYTES % (AUTO) 22.7 %; MEAN CORPUSCULAR HGB CONC 33.5 g/dL (32.0-36.0); MEAN CORPUSCULAR VOLUME 95.4 fL (80.0-94.0); MEAN PLATELET VOLUME 9.4 fL (7.4-11.4); MONOCYTES # (AUTO) 0.4 10^3/uL (0.0-1.0); MONOCYTES % (AUTO) 8.4 %; NEUTROPHILS # (AUTO) 3.3 10^3/uL (1.5-6.6); NEUTROPHILS % (AUTO) 67.3 %; PLT - PLATELET COUNT 205 10^3/uL (130-450); RED CELL DISTRIBUTION WIDTH 13.6 % (12.0-15.0); WHITE BLOOD COUNT 4.9 x10^3/uL (4.8-10.8)
--- NOTE | 2022-07-27 08:35 | ED Physician Documentation ---
PD HPI FOCAL NEURO - Stated complaint Stated Complaint: UNSTEADY ON FEET/NUMBNESS - History obtained from History obtained from: Patient - Additional information Additional information: Patient is a 66-year-old male with a history of hypothyroidism presenting for evaluation of left-sided weakness, trouble swallowing starting at 645 this morning. Patient reports getting up and putting a load of laundry in and was doing okay at that time but around 645 started feeling of weakness and heaviness on his left side and felt that he was leaning towards his left. He reports falling and he did hit his head but denies any LOC.He reports having numbness to the left side of his body as well as feeling heaviness in his arm and leg. He does not take a blood thinner.He states he felt his usual self when he woke up first thing this morning.He reports having a mild headache for the past 2 days.He denies chest pain, difficulty breathing, abdominal pain, vomiting or diarrhea. Review of Systems Constitutional: denies: Fever Cardiac: denies: Chest pain / pressure Respiratory: denies: Dyspnea GI: denies: Abdominal Pain : denies: Dysuria Musculoskeletal: denies: Back pain Neurologic: reports: Focal weakness, Headache PD PAST MEDICAL HISTORY - Past Medical History Cardiovascular: None, Other Respiratory: None Neuro: None Endocrine/Autoimmune: HyPOthyroidism GI: GERD : None HEENT: None Psych: Anxiety, Claustrophobia Musculoskeletal: None Derm: None - Past Surgical History Past Surgical History: Yes General: Colonoscopy, EGD, Other - Present Medications Home Medications: Ambulatory Orders Medication Instructions Recorded Confirmed Levothyroxine Sodium [Levo-T] 112 mcg PO QDAC 06/12/17 06/29/22 - Allergies Allergies/Adverse Reactions: Allergies Allergy/AdvReac Type Severity Reaction Status Date / Time amoxicillin Allergy Rash Verified 06/29/22 11:56 tetracycline Allergy Hives Verified 06/29/22 11:56 Penicillins AdvReac Respiratory Verified 06/29/22 11:56 - Social History Does the pt smoke?: No Smoking Status: Never smoker Does the pt drink ETOH?: No Does the pt have substance abuse?: Yes - Immunizations Immunizations are current?: Yes - POLST Patient has POLST: No POLST Status: Full Code PD ED PE NORMAL - General General: Alert and oriented X 3, No acute distress, Well developed/nourished - HEENT HEENT: Atraumatic, PERRL, EOMI, Moist mucous membranes, Pharynx benign (Tongue is midline) - Neck Neck: Supple, no meningeal sign - Cardiac Cardiac: RRR, No murmur - Respiratory Respiratory: No respiratory distress, Clear bilaterally - Abdomen Abdomen: Soft, Non tender - Derm Derm: Warm and dry - Neuro Neuro: Alert and oriented X 3, 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 No: No motor deficit (Decreased chemist enzymes strength to left hand), No sensory deficit (Decreased sensation to left face, arm, leg) NIHSS - Time Time: 08:19 - Level of Consciousness Level of consciousness: (0) Alert, Keenly responsive LOC Questions: (0) Answers both Q's correct LOC Commands: (0) Performs both correctly - Gaze Best Gaze: (0) Normal - Visual Visual: (0) No loss - Facial Palsy Facial Palsy: (0) Normal, symmetrical movement - Motor Arms (both separate) Motor Arm (right): (0) No drift Motor Arm (left): (1) Drift - Motor Legs (both separate) Motor Leg (right): (0) No drift Motor Leg (left): (0) No drift - Limb Ataxia Limb Ataxia: (1) Present in 1 limb - Sensory Sensory: (1) Kytz-er-rqnayyhf loss - Best Language Best Language: (0) No aphasia - Dysarthria Dysarthria: (0) Normal - Extinction and Inattention (formally neg Extinction and inattention: (0) No abnormality - Total Score/Results Total Score/Result: 3 Results - Vitals Vitals: Vital Signs - 24 hr 07/27/22 07/27/22 07/27/22 08:15 09:17 09:30 Temperature 37.5 C Heart Rate 69 86 64 Respiratory 15 16 16 Rate Blood Pressure 140/93 H 140/93 H 151/106 H O2 Saturation 95 99 96 07/27/22 07/27/22 07/27/22 10:00 10:30 11:00 Temperature Heart Rate 69 66 71 Respiratory 13 14 12 Rate Blood Pressure 162/121 H 137/95 H 165/106 H O2 Saturation 96 93 97 07/27/22 11:30 Temperature Heart Rate 59 L Respiratory 14 Rate Blood Pressure 127/91 H O2 Saturation 96 Oxygen O2 Source Room air - EKG (time done) 0821 Rate: Rate (enter#) (61) Rhythm: NSR Intervals: No: Prolonged QT Ischemia: No: ST elevation c/w ischemia - Labs Labs: Laboratory Tests 07/27/22 07/27/22 07/27/22 08:27 08:27 08:27 WBC 4.9 RBC 4.60 L Hgb 14.7 Hct 43.9 MCV 95.4 H MCH 32.0 H MCHC 33.5 RDW 13.6 Plt Count 205 MPV 9.4 Neut # (Auto) 3.3 Lymph # (Auto) 1.1 L [place] # (Auto) 0.4 Eos # (Auto) 0.0 Baso # (Auto) 0.0 Absolute Nucleated RBC 0.00 Nucleated RBC % 0.0 PT 10.7 INR 0.9 Sodium 139 Potassium 3.8 Chloride 103 Carbon Dioxide 28 Anion Gap 8.0 BUN 17 Creatinine 0.9 Estimated GFR (MDRD) 85 L Glucose 109 H Calcium 9.1 Total Bilirubin 0.6 AST 21 ALT 25 Alkaline Phosphatase 34 L Total Protein 7.3 Albumin 4.5 Globulin 2.8 Albumin/Globulin Ratio 1.6 Lipase 35 PD MEDICAL DECISION MAKING - ED course Complexity details: reviewed results, re-evaluated patient, d/w patient, d/w family ED course: Patient presenting for evaluation of left-sided weakness, falls, difficulty with his speech. I have concerns for an acute ischemic event and Patient was evaluated as a code stroke. His last normal was 645 this morning as he had been feeling fine prior to that.He is in no window for TPA/TNK. Teleneurology has also evaluated the patient and recommended Thrombolytics. Patient wanted to discuss with his sons as he was concerned about the risks of this medications.There was a delay in Order of the medication as teleneurology wanted to confirm with radiology that there was no signs of an AVM. I did speak with Dr. Ornelas regarding this concern and radiology again states that there is no AVM. I did speak again with teleneurology who again recommends Thrombolytics. I did have a long discussion with patient and his sons at the bedside regarding risks and benefits of the medication as teleneurology had already done. After further conversation they are in agreement to Receiving TNK. Patient did receive TNK while here. After some timemHe did report a severe headache And a repeat CT scan was obtained which did not show a bleed. Air ambulance is not available due to weather and patient was transported by ground. 927 - After further discussion, patient and his sons have consented to receiving tenecteplase. Order has been placed. D/W Dr. Reyes (NEURO ICU, [facility]) - Agrees to accept the patient for transfer. Agrees with current management. - Critical Care Time(min): 31 Time Includes: Direct patient care, Reassess patient, Document care, Coordinate care, Medical consult Departure - Departure Disposition: 02 Transfer Acute Care Hosp Clinical Impression: Ischemic stroke Condition: Stable
[2022-07-27 08:39] LABS: INR 0.9 (0.8-1.2); PT - PROTHROMBIN TIME 10.7 secs (9.9-12.6)
[2022-07-27] MEDS ORDERED: iohexoL-300 100 ML VIAL IVP ONE (08:45)
[2022-07-27 08:47] LABS: ALBUMIN 4.5 g/dL (3.2-5.5); ALBUMIN/GLOBULIN RATIO 1.6 (1.0-2.2); BILIRUBIN,TOTAL 0.6 mg/dL (0.2-1.0); CALCIUM 9.1 mg/dL (8.5-10.3); CREATININE 0.9 mg/dL (0.6-1.2); POTASSIUM 3.8 mmol/L (3.5-5.0); TOTAL PROTEIN 7.3 g/dL (6.7-8.2)
--- NOTE | 2022-07-27 08:48 | CT Report ---
PROCEDURE: Head W/O Stroke Protocol INDICATIONS: L sided weakness/trouble swallowing TECHNIQUE: Noncontrast 4.5 mm thick angled axial sections acquired from the foramen magnum to the vertex, with c oronal reformats. For radiation dose reduction, the following was used: automated exposure control, adjustment of mA and/or kV according to patient size. COMPARISON: FINDINGS: Image quality: Excellent. CSF spaces: Basal cisterns are patent. No extra-axial fluid collections. Ventricles are normal in size and shape. Brain: No midline shift. No intracranial masses or hemorrhage. Sparrow-white matter interface is norm al. Skull and face: Calvarium and visualized facial bones are intact, without suspicious lesions. Sinuses: Visualized sinuses and mastoids are clear. IMPRESSION: No acute intracranial abnormality. Findings discussed with Dr. Yun on 07/27/2022 at 0846 hours EST. This study fulfills neurological imaging criteria for inclusion or exclusion of acute stroke therapie s based on available published neurological imaging guidelines. Reviewed by: Cathy Ornelas MD on 07/27/2022 7:47 AM [place] Approved by: Cathy Ornelas MD on 07/27/2022 7:47 AM [place] Station ID: [id number]
--- NOTE | 2022-07-27 08:59 | CT Report ---
PROCEDURE: ANGIO HEAD W/WO INDICATIONS: L sided weakness CONTRAST: 80ml omni 300 TECHNIQUE: Precontrast 4.5 mm thick angled axial sections acquired from the foramen magnum to the vertex. Afte r the administration of intravenous contrast, 1 mm thick sections acquired through the [place] is. Postcontrast 4.5 mm thick sections then re-acquired from the foramen magnum to the vertex. 3-di mensional yrjadkp-vrqcgioub-dfwpaganpw (MIP) and/or volume rendering reformats were acquired of the c entral intracranial vasculature. For radiation dose reduction, the following was used: automated ex posure control, adjustment of mA and/or kV according to patient size. COMPARISON: Head CT dated 07/27/2022 FINDINGS: Image quality: Excellent. Anterior circulation: Intracranial internal carotid arteries are normal in size and flow. The flow within the paired anterior cerebral arteries is normal and symmetric. The flow within the middle cer ebral arteries is normal and symmetric. The anterior communicating artery is seen. No aneurysms are seen. Posterior circulation: Visualized portions of the vertebral arteries demonstrate normal caliber, and join to form a normal appearing basilar artery. Flow within the posterior cerebral arteries is norm al and symmetric. No aneurysms are seen. CSF spaces: Ventricles are normal in size and shape. Basal cisterns are patent. No extra-axial flu id collections. Brain: No midline shift. No intracranial bleeds or masses. Sparrow-white matter interface appears int act. Skull and face: Calvarium and facial bones appear intact, without suspicious lesions. Sinuses: Visualized sinuses and mastoids are clear. IMPRESSION: No acute process involving the arterial tree of the head. Reviewed by: Cathy Ornelas MD on 07/27/2022 7:58 AM [place] Approved by: Cathy Ornelas MD on 07/27/2022 7:58 AM [facility] Station ID: [id number]
--- NOTE | 2022-07-27 09:01 | CT Report ---
PROCEDURE: ANGIO NECK W INDICATIONS: L sided weakness CONTRAST: 80ml omni 300 TECHNIQUE: After the administration of intravenous contrast, 1.5 mm axial sections acquired from the aortic arch to the [place]. Coronal 3-D maximum intensity projection (MIP) and/or volume rendering ref ormats were then performed. For radiation dose reduction, the following was used: automated exposur e control, adjustment of mA and/or kV according to patient size. COMPARISON: None. FINDINGS: Image quality: Excellent. Carotid system: The great vessels demonstrate a conventional anatomy as they arise from the aortic a rch. The origins of the common carotid arteries appear patent. The common carotid arteries demonstr ate normal calibers and courses. The bifurcation regions appear normal bilaterally. The internal ca rotid arteries demonstrate normal caliber and course. Posterior circulation: The origins of the vertebral arteries appear patent. The more superior porti ons of the vertebral arteries demonstrate normal course and caliber. They join to form a normal appe aring basilar artery. Soft tissues: Visualized neck soft tissues demonstrate no suspicious abnormalities. The thyroid is normal in size and there are no incidental findings. Bones: No suspicious bony lesions. Visualized cervical spine appears normally aligned. IMPRESSION: No acute process involving the arterial tree of the neck. The estimate of stenosis included in the report of the imaging study was calculated using the NASCET method Reviewed by: Cathy Ornelas MD on 07/27/2022 7:59 AM [facility] [place] Approved by: Cathy Ornelas MD on 07/27/2022 7:59 AM [facility] [place] Station ID: [id number]
[2022-07-27] MEDS ORDERED: TENECTEPLASE 50 MG/10 ML VIAL IVP STA (09:25)
--- NOTE | 2022-07-27 11:34 | CT Report ---
PROCEDURE: HEAD WO INDICATIONS: headache after TNK TECHNIQUE: Noncontrast 4.5 mm thick angled axial sections acquired from the foramen magnum to the vertex. For r adiation dose reduction, the following was used: automated exposure control, adjustment of mA and/or kV according to patient size. COMPARISON: None. FINDINGS: Image quality: Excellent. CSF spaces: Basal cisterns are patent. No extra-axial fluid collections. Ventricles are normal in size and shape. Brain: No midline shift. No intracranial masses or hemorrhage. Sparrow-white matter interface is norm al. Skull and face: Calvarium and visualized facial bones are intact, without suspicious lesions. Sinuses: Visualized sinuses and mastoids are clear. IMPRESSION: No acute intracranial abnormality. Reviewed by: Cathy Ornelas MD on 07/27/2022 10:33 AM [facility] Approved by: Cathy Ornelas MD on 07/27/2022 10:33 AM [facility] Station ID: [id number]
[2022-07-27 13:44] VITALS: BP 143/91
== END 2022-07-27 13:42 | disposition short-term general hospital (02) ==
LOC: EDUNIT# → ED 08:08
DX: I63.89 Other cerebral infarction (principal); R29.703 NIHSS score 3; Z20.822 Contact with and (suspected) exposure to COVID-19
CPT/HCPCS: 36415; 37195; 70450; 70496; 70498; 80053; 83690; 85025; 85610; 87635; 93005; 99285; 99291; J3101; Q9967

== ENCOUNTER 2022-07-27 12:42 | Outpatient (CLI) | payer BC | END 2022-07-27 12:43 | disposition short-term general hospital (02) | LOC: EMS 12:42 | PROVIDERS: ATTEND Emergency Medicine | DX: I63.9 Cerebral infarction, unspecified (principal) | CPT/HCPCS: A0425; A0428 ==

== ENCOUNTER → 2022-07-27 | Outpatient (CLI) | payer BC | END | disposition critical access hospital (66) | LOC: EMS 07:31 | DX: R20.0 Anesthesia of skin (principal); R53.1 Weakness | CPT/HCPCS: A0425; A0429 ==

== ENCOUNTER 2023-09-09 09:31 | Outpatient (CLI) | payer MEDICARE, OTHER ==
[2023-09-09 15:12] LABS: ALBUMIN 4.3 g/dL (3.2-5.5); ALKALINE PHOSPHATASE 35 IU/L (42-121); ALT ALANINE AMINOTRANSFERASE 15 IU/L (10-60); AST ASPARTATE AMINOTRANSFERASE 16 IU/L (10-42); BILIRUBIN,DIRECT < 0.10 mg/dL (0.03-0.18); BILIRUBIN,TOTAL 0.5 mg/dL (0.2-1.0); BUN - BLOOD UREA NITROGEN 24 mg/dL (6-20); CREATININE 1.2 mg/dL (0.6-1.3); GFR - MDRD 61 (>89); TOTAL PROTEIN 6.9 g/dL (6.4-8.9)
== END 2023-09-09 09:32 | disposition home or self-care (01) ==
LOC: LAB.S 09:31
PROVIDERS: ATTEND Physician Assistant Medical
DX: B35.1 Tinea unguium (principal)
CPT/HCPCS: 36415; 80076; 82565; 84520

== ENCOUNTER 2023-10-08 08:57 | Outpatient (CLI) | payer MEDICARE, OTHER ==
[2023-10-08 15:06] LABS: ABSOLUTE RETICS # AUTO 0.069 10^6/uL (0.020-0.110); BASOPHILS % (AUTO) 0.5 %; EOSINOPHILS # (AUTO) 0.1 10^3/uL (0.0-0.7); EOSINOPHILS % (AUTO) 1.4 %; HCT - HEMATOCRIT 46.1 % (42.0-52.0); HGB - HEMOGLOBIN 14.7 g/dL (14.0-18.0); LYMPHOCYTES # (AUTO) 1.1 10^3/uL (1.5-3.5); LYMPHOCYTES % (AUTO) 25.7 %; MEAN CORPUSCULAR HEMOGLOBIN 31.7 pg (27.0-31.0); MEAN CORPUSCULAR HGB CONC 31.9 g/dL (32.0-36.0); MEAN CORPUSCULAR VOLUME 99.4 fL (80.0-94.0); MEAN PLATELET VOLUME 10.4 fL (7.4-11.4); MONOCYTES # (AUTO) 0.5 10^3/uL (0.0-1.0); MONOCYTES % (AUTO) 11.1 %; NEUTROPHILS # (AUTO) 2.6 10^3/uL (1.5-6.6); NEUTROPHILS % (AUTO) 60.8 %; PLT - PLATELET COUNT 219 10^3/uL (130-450); RED BLOOD COUNT 4.64 10^6/uL (4.70-6.10); RETICULOCYTE COUNT % (AUTO) 1.49 % (0.5-2.3); WHITE BLOOD COUNT 4.2 x10^3/uL (4.8-10.8)
[2023-10-08 15:21] LABS: RHEUMATOID FACTOR NEGATIVE (Negative)
[2023-10-08 16:06] LABS: % IRON SATURATION 37 % (20-50); ALBUMIN 4.3 g/dL (3.2-5.5); ALBUMIN/GLOBULIN RATIO 1.7 (1.0-2.2); ALKALINE PHOSPHATASE 31 IU/L (42-121); ALT ALANINE AMINOTRANSFERASE 18 IU/L (10-60); AST ASPARTATE AMINOTRANSFERASE 19 IU/L (10-42); BILIRUBIN,TOTAL 0.6 mg/dL (0.2-1.0); BUN - BLOOD UREA NITROGEN 22 mg/dL (6-20); CALCIUM 9.5 mg/dL (8.5-10.3); CARBON DIOXIDE - CO2 29 mmol/L (21-32); CHLORIDE 105 mmol/L (101-111); CHOL/HDL RATIO 4.8 (<5.0); CHOLESTEROL 253 mg/dL; GFR - MDRD 75 (>89); GLUCOSE 96 mg/dL (74-104); HDL CHOLESTEROL 53 mg/dL; IRON 135 ug/dL (50-212); LDL CHOLESTEROL,CALCULATED 163 mg/dL; LDL/HDL RATIO 3.1 (<3.6); POTASSIUM 4.1 mmol/L (3.5-4.5); SODIUM 139 mmol/L (135-145); THYROID STIMULATING HORMONE 22.04 uIU/mL (0.34-5.60); TOTAL IRON BINDING CAPACITY 363 ug/dL (250-450); TOTAL PROTEIN 6.8 g/dL (6.4-8.9); TRANSFERRIN 259 mg/dL (203-362); TRIGLYCERIDES 184 mg/dL (48-352); URIC ACID 5.2 mg/dL (4.4-7.6); VLDL CHOLESTEROL 37 mg/dL
[2023-10-08 16:11] LABS: FERRITIN 26.1 ng/mL (23.9-336.2)
[2023-10-08 22:17] LABS: ESTIMATED AVERAGE GLUCOSE 108 mg/dL (70-100); HEMOGLOBIN A1c% 5.4 % (4.27-6.07)
[2023-10-09 18:07] LABS: ANTI-DNA (DS) AB QN <1 IU/mL (0-9)
[2023-10-09 19:07] LABS: CYCLIC CITRULLINATED PEP IGG/A 7 units (0-19)
[2023-10-09 22:07] LABS: T-TRANSGLUTAMINASE (TTG) IGA <2 U/mL (0-3); T-TRANSGLUTAMINASE (TTG) IGG 2 U/mL (0-5)
[2023-10-13 16:08] LABS: ANTINUCLEAR ANTIBODIES IFA Negative (.)
== END 2023-10-08 08:58 | disposition home or self-care (01) ==
LOC: LAB.S 08:57
PROVIDERS: ATTEND Physician Assistant Medical
DX: R20.2 Paresthesia of skin (principal); Z13.9 Encounter for screening, unspecified; E03.9 Hypothyroidism, unspecified; K31.84 Gastroparesis
CPT/HCPCS: 36415; 80053; 80061; 82607; 82728; 82746; 83036; 83540; 83721; 84153; 84439; 84443; 84466; 84550; 85025; 85045; 85651; 86038; 86140; 86200; 86225; 86364; 86430

== ENCOUNTER 2023-11-15 14:32 | Outpatient (CLI) | payer MEDICARE, OTHER | END 2023-11-15 23:59 | disposition critical access hospital (66) | LOC: EMS 14:32 | DX: R10.84 Generalized abdominal pain (principal); R14.0 Abdominal distension (gaseous); R19.37 Generalized abdominal rigidity | CPT/HCPCS: A0425; A0429 ==

== ENCOUNTER 2023-11-15 15:01 | Emergency (ER) | payer MEDICARE, OTHER ==
[2023-11-15 15:39] LABS: BASOPHILS % (AUTO) 0.2 %; EOSINOPHILS % (AUTO) 0.2 %; HCT - HEMATOCRIT 41.6 % (42.0-52.0); HGB - HEMOGLOBIN 13.9 g/dL (14.0-18.0); LYMPHOCYTES % (AUTO) 20.6 %; MEAN CORPUSCULAR HEMOGLOBIN 31.7 pg (27.0-31.0); MEAN CORPUSCULAR HGB CONC 33.4 g/dL (32.0-36.0); MEAN PLATELET VOLUME 9.8 fL (7.4-11.4); MONOCYTES # (AUTO) 0.4 10^3/uL (0.0-1.0); MONOCYTES % (AUTO) 9.1 %; NEUTROPHILS # (AUTO) 3.4 10^3/uL (1.5-6.6); NEUTROPHILS % (AUTO) 69.5 %; PLT - PLATELET COUNT 212 10^3/uL (130-450); RED BLOOD COUNT 4.38 10^6/uL (4.70-6.10); RED CELL DISTRIBUTION WIDTH 12.3 % (12.0-15.0); WHITE BLOOD COUNT 4.9 x10^3/uL (4.8-10.8)
--- NOTE | 2023-11-15 15:51 | ED Physician Documentation ---
PD HPI ABD PAIN - Stated complaint Stated Complaint: ABD PX - Chief complaint Chief Complaint: Abd Pain - History obtained from History obtained from: Patient - History of Present Illness Pain level max: 3 Pain level now: 3 Quality: Aching, Dull Location: All over / everywhere Associated symptoms: Nausea. No: Fever, Vomiting, Hematemesis, Diarrhea, Constipation, Melena, Hematochezia, Dysuria - Additional information Additional information: The patient is a 68-year-old male who presents to the emergency department with diffuse abdominal pain and abdominal swelling since approximately 5 AM today. He states that the pain is not severe, 3-4 out of 10. He states it feels like a large amount of gas is trapped in his abdomen. Took simethicone without relief. Mild nausea. No vomiting. No diarrhea or constipation. No fever. No dysuria. Has not had similar symptoms previously. No abdominal surgeries. Nothing seems to make it better or worse. Review of Systems Constitutional: denies: Fever, Chills Respiratory: denies: Cough Skin: denies: Rash Musculoskeletal: denies: Neck pain, Back pain Neurologic: denies: Headache PD PAST MEDICAL HISTORY - Past Medical History Past Medical History: Yes Cardiovascular: None, Other Respiratory: None Neuro: None Endocrine/Autoimmune: HyPOthyroidism GI: GERD : None HEENT: None Psych: Anxiety, Claustrophobia Musculoskeletal: None Derm: None - Past Surgical History Past Surgical History: Yes General: Colonoscopy, EGD, Other - Present Medications Home Medications: Ambulatory Orders Medication Instructions Recorded Confirmed Levothyroxine Sodium [Levo-T] 112 mcg PO QDAC 06/12/17 06/29/22 Atorvastatin [Lipitor] 11/15/23 - Allergies Allergies/Adverse Reactions: Allergies Allergy/AdvReac Type Severity Reaction Status Date / Time amoxicillin Allergy Rash Verified 11/15/23 15:09 tetracycline Allergy Hives Verified 11/15/23 15:09 Penicillins AdvReac Respiratory Verified 11/15/23 15:09 - Social History Does the pt smoke?: No Smoking Status: Never smoker Does the pt drink ETOH?: Yes Does the pt have substance abuse?: No - Immunizations Immunizations are current?: Yes - POLST Patient has POLST: No POLST Status: Full Code PD ED PE NORMAL - Vitals Vital signs reviewed: Yes - General General: Alert and oriented X 3, No acute distress - HEENT HEENT: PERRL, Moist mucous membranes - Neck Neck: Supple, no meningeal sign - Cardiac Cardiac: RRR, Strong equal pulses - Respiratory Respiratory: No respiratory distress, Clear bilaterally - Abdomen Abdomen: Soft, Non distended, Other (Distended abdomen, soft. Tympanic to percussion. Mild diffuse tenderness.) - Back Back: No spinal TTP - Derm Derm: Warm and dry - Extremities Extremities: No edema - Neuro Neuro: Alert and oriented X 3 - Psych Psych: Normal mood, Normal affect Results - Vitals Vitals: Vital Signs - 24 hr 11/15/23 11/15/23 11/15/23 15:01 17:09 18:24 Temperature 37.2 C 37.2 C Heart Rate 60 60 60 Respiratory 18 15 13 Rate Blood Pressure 113/95 H 127/91 H 127/90 H O2 Saturation 99 99 98 Oxygen O2 Source Room air - Labs Labs: Laboratory Tests 11/15/23 11/15/23 15:30 15:30 WBC 4.9 RBC 4.38 L Hgb 13.9 L Hct 41.6 L MCV 95.0 H MCH 31.7 H MCHC 33.4 RDW 12.3 Plt Count 212 MPV 9.8 Neut # (Auto) 3.4 Lymph # (Auto) 1.0 L Atkinson # (Auto) 0.4 Eos # (Auto) 0.0 Baso # (Auto) 0.0 Absolute Nucleated RBC 0.00 Nucleated RBC % 0.0 Sodium 141 Potassium 3.9 Chloride 109 Carbon Dioxide 26 Anion Gap 6.0 BUN 22 H Creatinine 0.9 Estimated GFR (MDRD) 84 L Glucose 95 Calcium 9.5 Total Bilirubin 0.4 AST 15 ALT 15 Alkaline Phosphatase 28 L Total Protein 5.9 L Albumin 3.9 Globulin 2.0 L Albumin/Globulin Ratio 2.0 Lipase 29 - Rads (name of study) CT abdomen pelvis Relevant Findings:: Final report received, See rad report PD Medical Decision Making - ED course Complexity details: reviewed results, re-evaluated patient, considered differential, d/w patient ED course: Patient's abdominal distention decreased in the emergency department. He is tolerating p.o. without difficulty. No significant lab abnormalities. CT scan does not show any acute abnormalities. He states that he has had issues with intestinal and gastric motility in the past and had been on Reglan. He states his doctor has recently taken off of this. Possible that this has been causing his symptoms again. Recommend further evaluation with his doctor. Patient is very well-appearing, nontoxic. Afebrile. Abdomen is soft, nontender, mildly distended on serial exam. Patient counseled regarding signs and symptoms for which I believe and urgent re-evaluation would be necessary. Patient with good understanding of and agreement to plan and is comfortable going home at this time This document was made in part using voice recognition software. While efforts are made to proofread this document, sound alike and grammatical errors may occur. Departure - Departure Disposition: Home, Self Care Clinical Impression: Abdominal pain Qualifiers: Abdominal location: unspecified location Qualified Code(s): R10.9 - Unspecified abdominal pain Condition: Good Instructions: ED Abdominal Pain Unkn Cause Male Follow-Up: Your,doctor in 1 week [Other] Comments: The cause of your symptoms is unclear today. Please follow-up with your doctor for further care. Please return if you worsen. Drink plenty of fluids at home. There are no acute findings on your CT scan or laboratory testing to explain your symptoms today. If the symptoms continue your doctor may want to refer you for a GI workup. PROCEDURE: Abdomen/Pelvis W INDICATIONS: Abdominal pain, acute, nonlocalized CONTRAST: 100ml omni 300 TECHNIQUE: After the administration of intravenous contrast, a CT scan of the abdomen and pelvis was performed. Images were recorded and evaluated at appropriate window settings. Reformats: coronal and sagittal. For radiation dose reduction, the following was used: automated exposure control, adjustment of mA and/or kV according to patient size. COMPARISON: 10/23/2020. FINDINGS: Image quality: Diagnostic. Lower chest: Unremarkable. Liver: No solid mass. Decreased attenuation, consistent with hepatic steatosis. Gallbladder and biliary tree: No radiopaque stones or wall thickening. No biliary dilation. Spleen: No splenomegaly. Splenule is noted. Pancreas: No pancreatic ductal dilation. Adrenals: No adrenal nodule. Kidneys and ureters: No hydronephrosis. Bilateral parapelvic cysts. No renal cystic lesion which requires follow up. No solid mass. Stomach, bowel and peritoneum: No bowel distension. No pathologic free fluid. Lymph nodes: No central or retroperitoneal adenopathy. Vessels: No infrarenal aortic aneurysm. Atherosclerotic vascular calcifications. PELVIS Reproductive organs: Unremarkable. Bladder: No abnormal wall thickening, accounting for underdistention. Pelvic lymph nodes: No pelvic adenopathy by size criteria. Bones: No aggressive osseous abnormality. Degenerative changes of the spine. Other: No significant ventral or inguinal hernia. IMPRESSION: No acute findings within the abdomen or pelvis to explain patient's symptoms. Forms: PCP List Discharge Date/Time: 11/15/23 18:28
[2023-11-15 15:55] LABS: ALBUMIN 3.9 g/dL (3.2-5.5); BILIRUBIN,TOTAL 0.4 mg/dL (0.2-1.0); CALCIUM 9.5 mg/dL (8.5-10.3); CREATININE 0.9 mg/dL (0.6-1.3); POTASSIUM 3.9 mmol/L (3.5-4.5); TOTAL PROTEIN 5.9 g/dL (6.4-8.9)
[2023-11-15] MEDS ORDERED: iohexoL-300 100 ML VIAL ONE (15:57)
[2023-11-15] MEDS ORDERED: DIATRIZOATE MEGLU/DIATRIZO SOD 30 ML BOTTLE PO ONE (15:57)
[2023-11-15] MEDS: DIATRIZOATE MEGLU/DIATRIZO SOD 30 ML BOTTLE PO ONE (17:11)
[2023-11-15] MEDS: iohexoL-300 100 ML VIAL IVP ONE (17:11)
--- NOTE | 2023-11-15 17:19 | CT Report ---
PROCEDURE: Abdomen/Pelvis W INDICATIONS: Abdominal pain, acute, nonlocalized CONTRAST: 100ml omni 300 TECHNIQUE: After the administration of intravenous contrast, a CT scan of the abdomen and pelvis was performed. Images were recorded and evaluated at appropriate window settings. Reformats: coronal and sagittal. F or radiation dose reduction, the following was used: automated exposure control, adjustment of mA and /or kV according to patient size. COMPARISON: 10/23/2020. FINDINGS: Image quality: Diagnostic. Lower chest: Unremarkable. Liver: No solid mass. Decreased attenuation, consistent with hepatic steatosis. Gallbladder and biliary tree: No radiopaque stones or wall thickening. No biliary dilation. Spleen: No splenomegaly. Splenule is noted. Pancreas: No pancreatic ductal dilation. Adrenals: No adrenal nodule. Kidneys and ureters: No hydronephrosis. Bilateral parapelvic cysts. No renal cystic lesion which requ ires follow up. No solid mass. Stomach, bowel and peritoneum: No bowel distension. No pathologic free fluid. Lymph nodes: No central or retroperitoneal adenopathy. Vessels: No infrarenal aortic aneurysm. Atherosclerotic vascular calcifications. PELVIS Reproductive organs: Unremarkable. Bladder: No abnormal wall thickening, accounting for underdistention. Pelvic lymph nodes: No pelvic adenopathy by size criteria. Bones: No aggressive osseous abnormality. Degenerative changes of the spine. Other: No significant ventral or inguinal hernia. IMPRESSION: No acute findings within the abdomen or pelvis to explain patient's symptoms. Reviewed by: Piyush Yu MD on 11/15/2023 5:18 PM PDT Approved by: Piyush Yu MD on 11/15/2023 5:18 PM PDT Station ID: [id number]
[2023-11-15 18:25] VITALS: BP 127/90; O2SAT 98
== END 2023-11-15 18:28 | disposition home or self-care (01) ==
LOC: ED 15:01
DX: R10.9 Unspecified abdominal pain (principal); R11.0 Nausea
CPT/HCPCS: 36415; 74177; 80053; 83690; 85025; 99283; 99284; Q9963; Q9967

== ENCOUNTER 2024-04-01 12:59 | Outpatient (CLI) | payer MEDICARE, OTHER ==
[2024-04-01 20:24] LABS: ALKALINE PHOSPHATASE 36 IU/L (42-121); ALT ALANINE AMINOTRANSFERASE 14 IU/L (10-60); AST ASPARTATE AMINOTRANSFERASE 15 IU/L (10-42); BILIRUBIN,DIRECT < 0.10 mg/dL (0.03-0.18); BILIRUBIN,TOTAL 0.3 mg/dL (0.2-1.0); BUN - BLOOD UREA NITROGEN 18 mg/dL (6-20); CREATININE 0.9 mg/dL (0.6-1.3); GFR - MDRD 84 (>89)
== END 2024-04-01 13:00 | disposition home or self-care (01) ==
LOC: LAB.S 12:59
PROVIDERS: ATTEND Physician Assistant Medical
DX: B35.1 Tinea unguium (principal)
CPT/HCPCS: 36415; 80076; 82565; 84520